=== PATIENT | female | born 1995 | race Caucasian/White ===

== ENCOUNTER 2016-12-12 07:06 | Inpatient (IN) | payer OTHER, MEDICAID ==
[2016-12-12] MEDS ORDERED: Misoprostol 50 MCG (1/2 of 100 MCG) Tab VAG ONE (08:11)
[2016-12-12] MEDS ORDERED: Ondansetron 4 MG Tab.DIS PO PRN (08:21)
[2016-12-12] MEDS ORDERED: Sodium Chloride 0.9% 10 ML Syringe FLUSH PRN (08:21)
[2016-12-12] MEDS ORDERED: fentaNYL 100 MCG/2 ML SDV IVPUSH PRN (08:21)
[2016-12-12] MEDS ORDERED: Acetaminophen 325 MG Tab PO PRN (08:21)
[2016-12-12] MEDS ORDERED: Penicillin G Potassium 5 MILLUNITS in Sodium Chloride 0.9% 50 ML IV ONE (08:25)
--- NOTE | 2016-12-12 08:33 | PCM.LDHP ---
L&D History of Present Illness - General Date of Service: 12/12/16 (induction) Admit Problem/Dx: Patient Status Order with Admit Dx/Problem 12/12/16 07:25 Patient Status [ADT] Routine 12/12/16 08:21 Patient Status [ADT] Routine Admission Diagnosis/Problem Admission Diagnosis/Problem Source of Information: Patient History Limitations: Reports: No Limitations - History of Present Illness Introduction:: This 20 year old presents today for planned induction at 41 weeks. She has had adequate care. She also has a narrow pelvis. reactive NST this morning with baseline FHTs 130 with moderate variability, cat 1 strip. CE: / Labs: GBS pos ABO A neg, had Rhogam Rubella immune HIV neg - Related Data Allergies/Adverse Reactions: Allergies Allergy/AdvReac Type Severity Reaction Status Date / Time No Known Allergies Allergy Verified 11/07/16 02:34 Home Medications: Home Meds Pnv22/Iron Cbn&Gluc/Fa/Dss/Dha [PNV OB + DHA] 1 tab PO DAILY 11/07/16 [History] Triamcinolone Acetonide [IJD: Triamcinolone Acetonide 0.1% Crm] 1 applicful TOP TID 11/07/16 [History] Past Medical History - Past Health History Medical/Surgical History: Denies Medical/Surgical History [employer] History: Reports: : 1 Para: 0 LMP (Approximate): (NERISSA 12/03/16) Social & Family History - Family History Family Medical History: Noncontributory H&P Review of Systems - Review of Systems: Review Of Systems: See Below General: Reports: No Symptoms HEENT: Reports: No Symptoms Pulmonary: Reports: No Symptoms Cardiovascular: Reports: No Symptoms Gastrointestinal: Reports: No Symptoms Genitourinary: Reports: No Symptoms Musculoskeletal: Reports: No Symptoms Skin: Reports: No Symptoms Psychiatric: Reports: No Symptoms Neurological: Reports: No Symptoms Hematologic/Lymphatic: Reports: No Symptoms Immunologic: Reports: No Symptoms L&D Exam - Exam Exam: See Below - Vital Signs Weight: 206 lb - OB Specific Fundal Height In cm: 39 Contraction Intensity: Mild Movement: Active Heart Tones: Present Heart Tones per Min: 130 Heart Rate (FHR) Variability: Moderate (6-25 bmp) Presentation: Vertex Estimated Weight: 8 pounds - Zelaya Score Zelaya Score Cervix Position: Posterior Zelaya Score Consistency: Soft Zelaya Score Effacement: 51-70% Zelaya Score Dilation: 1-2 cm Zelaya Score 's Station: -1 ,0 Zelaya Score Total: 7 - Exam General: Alert, Oriented HEENT: PERRLA, Conjunctiva Clear, Hearing Intact, Mucosa Moist & [place] Neck: Supple Lungs: Clear to Auscultation Cardiovascular: Regular Rate, Regular Rhythm Abdomen: Soft, Pelvis Stable Rectal Exam: Normal Exam Genitourinary: Normal external exam, Cervical dilitation, Enlarged uterus Back Exam: Normal Inspection, Full Range of Motion Extremities: Normal Inspection Skin: Warm, Dry, Intact Neurological: Cranial Nerves Intact, Reflexes Equal Bilateral Psychiatric: Alert, Normal Affect, Normal Mood - Patient Data Lab Results last 24 hrs: Laboratory Results - last 24 hr 12/12/16 12/12/16 12/12/16 Range/Units 07:43 07:43 07:48 WBC 11.1 H (4.5-11.0) K/uL RBC 4.27 (3.30-5.50) M/uL Hgb 12.4 (12.0-15.0) g/dL Hct 38.5 (36.0-48.0) % MCV 90 (80-98) fL MCH 29 (27-31) pg MCHC 32 (32-36) % Plt Count 202 (150-400) K/uL Urine Color Yellow Urine Appearance Turbid Urine pH 6.0 (4.5-8.0) Ur Specific [place] 1.010 (1.008-1.030) Urine Protein Negative (NEGATIVE) mg/dL Urine Glucose (UA) Normal (NEGATIVE) mg/dL Urine Ketones Negative (NEGATIVE) mg/dL Urine Occult Blood Trace (NEGATIVE) Urine Nitrite Negative (NEGATIVE) Urine Bilirubin Negative (NEGATIVE) Urine Urobilinogen Normal (NORMAL) mg/dL Ur Leukocyte Esterase Negative (NEGATIVE) Urine RBC 0-5 (0-5) Urine WBC 0-5 (0-5) Ur Epithelial Cells Many Amorphous Sediment Not seen Urine Bacteria Many Urine Mucus Few Urine Opiates Screen Negative (NEGATIVE) Ur Oxycodone Screen Negative (NEGATIVE) Urine Methadone Screen Negative (NEGATIVE) Ur Propoxyphene Screen Negative (NEGATIVE) Ur Barbiturates Screen Negative (NEGATIVE) Ur Tricyclics Screen Negative (NEGATIVE) Ur Phencyclidine Scrn Negative (NEGATIVE) Ur Amphetamine Screen Negative (NEGATIVE) U Methamphetamines Scrn Negative (NEGATIVE) Urine MDMA Screen Negative (NEGATIVE) U Benzodiazepines Scrn Negative (NEGATIVE) U Cocaine Metab Screen Negative (NEGATIVE) U Marijuana (THC) Screen Negative (NEGATIVE) Result Diagrams: 12/12/16 07:48 - Problem List (1) SNOMED Code(s): 02564967 ICD Code: Z33.1 - STATE, INCIDENTAL Status: Acute Current Visit : Yes Qualifiers: Weeks of gestation: 41 weeks Qualified Code(s): Z3A.41 - 41 weeks gestation of (2) Elective induction of labor planned SNOMED Code(s): 048164799 ICD Code: [id number] - Status: Acute Current Visit: Yes Problem List Initiated/Reviewed/Updated: Yes Orders Last 24hrs: Active Orders 24 hr Category Date Time Status Patient Status [ADT] Routine ADT 12/12/16 08:21 Ordered Antiembolic Devices [RC] .Routine Care 12/12/16 08:24 Ordered Communication Order [RC] ASDIRECTED Care 12/12/16 08:21 Ordered Heart Tones [RC] PER UNIT ROUTINE Care 12/12/16 08:21 Ordered May Shower [RC] ASDIRECTED Care 12/12/16 08:21 Ordered Notify Provider Vital Signs [RC] PRN Care 12/12/16 08:21 Ordered Notify Provider [RC] PRN Care 12/12/16 08:21 Ordered Up ad Magy [RC] ASDIRECTED Care 12/12/16 08:21 Ordered VTE/DVT Education [RC] Click to Edit Care 12/12/16 08:24 Ordered Vital Signs [RC] PER UNIT ROUTINE Care 12/12/16 08:21 Ordered Regular Diet [DIET] Diet 12/12/16 Lunch Ordered Acetaminophen [Tylenol] Med 12/12/16 08:21 Ordered 650 mg PO Q4H PRN Ondansetron [Zofran ODT] Med 12/12/16 08:21 Ordered 4 mg PO Q4H PRN Oxytocin/Normal Saline [Pitocin in NS 20 Units/1,000 ML Med 12/12/16 08:30 Ordered ] 1,000 ml IV TITRATE Penicillin G Potassium [Pfizerpen] 2.5 millunits Med 12/12/16 08:30 Ordered Sodium Chloride 0.9% [Normal Saline] 50 ml IV Q4H Penicillin G Potassium [Pfizerpen] 5 millunits Med 12/12/16 08:25 Ordered Sodium Chloride 0.9% [Normal Saline] 50 ml IV ONETIME Sodium Chloride 0.9% [Saline Flush] Med 12/12/16 08:21 Ordered 10 ml FLUSH ASDIRECTED PRN fentaNYL [Sublimaze] Med 12/12/16 08:21 Ordered 100 mcg IVPUSH Q1H PRN DVT/VTE Prophylaxis Reflex [OM.PC] Routine Oth 12/12/16 08:21 Ordered Saline Lock Insert [OM.PC] Routine Oth 12/12/16 08:21 Ordered Resuscitation Status Routine Resus Stat 12/12/16 08:21 Ordered Medication Orders Acetaminophen (Tylenol) 650 mg PO Q4H PRN PRN Reason: Pain (Mild 1-3) and fever Fentanyl (Sublimaze) 100 mcg IVPUSH Q1H PRN PRN Reason: Pain (moderate 4-6) Ondansetron HCl (Zofran Odt) 4 mg PO Q4H PRN PRN Reason: Nausea/Vomiting Sodium Chloride (Saline Flush) 10 ml FLUSH ASDIRECTED PRN PRN Reason: Keep Vein Open Assessment/Plan Comment:: This 20 G1 presents for induction at 41 weeks. GBS positive, treating ABo A neg had THogam at 29 weeks irregualr contractions on monitor this morning with a reactive nst. CE1-75-0 posterior Zelaya score 7 Plan for Misoprotol 50 MCG this morning vaginally and may repeat at noon. planning for vaginal delivery pain management per patient request.
[2016-12-12] MEDS: Penicillin G Potassium 2.5 MILLUNITS in Sodium Chloride 0.9% 50 ML IV SCH ×3 (13:15→21:44)
[2016-12-12] MEDS ORDERED: Lactated Ringers 1,000 ML IV ONE ×2 (17:46)
[2016-12-12] MEDS ORDERED: ePHEDrine 50 MG/ML SDV IVPUSH ONE (17:46)
--- NOTE | 2016-12-12 17:54 | PCM.PNLD ---
Labor Progress Note - VS & Meds Vital Signs: Last Vital Signs Temp 98.5 F 12/12/16 11:30 Pulse 89 12/12/16 11:30 Resp 18 12/12/16 11:30 BP 127/83 12/12/16 11:30 Pulse Ox 96 12/12/16 11:30 Active Medications: Current Medications Acetaminophen (Tylenol) 650 mg PO Q4H PRN PRN Reason: Pain (Mild 1-3) and fever Ephedrine Sulfate (Ephedrine Sulfate) 5 mg IVPUSH ONETIME ONE Stop: 12/12/16 17:47 Fentanyl (Sublimaze) 100 mcg IVPUSH Q1H PRN PRN Reason: Pain (moderate 4-6) Oxytocin/Sodium Chloride (Pitocin In Ns 20 Units/1,000 Ml) 20 unit in 1,000 mls @ 6 mls/hr IV TITRATE SIL; 2 MUNITS/MIN PRN Reason: Protocol Penicillin G Potassium 2.5 (millunits/ Sodium Chloride) 50 mls @ 100 mls/hr IV Q4H SIL Last Admin: 12/12/16 17:16 Dose: 100 mls/hr Lactated Ringer's (Ringers, Lactated) 1,000 mls @ 999 mls/hr IV .BOLUS ONE Stop: 12/12/16 18:46 Lactated Ringer's (Ringers, Lactated) 1,000 mls @ 999 mls/hr IV .BOLUS ONE Stop: 12/12/16 18:46 Ondansetron HCl (Zofran Odt) 4 mg PO Q4H PRN PRN Reason: Nausea/Vomiting Sodium Chloride (Saline Flush) 10 ml FLUSH ASDIRECTED PRN PRN Reason: Keep Vein Open Discontinued Medications Penicillin G Potassium 5 (millunits/ Sodium Chloride) 50 mls @ 100 mls/hr IV ONETIME ONE Stop: 12/12/16 08:54 Last Admin: 12/12/16 09:11 Dose: 100 mls/hr Misoprostol (Cytotec) 50 mcg VAG ONETIME ONE Stop: 12/12/16 08:12 Last Admin: 12/12/16 08:18 Dose: 50 mcg - Uterine Contractions Uterine Monitoring Mode: External [place] Contraction Intensity: Strong Uterine Resting Tone: Soft - Monitoring Monitor Mode: External Ultrasound Heart Rate (FHR) Baseline: 140 Heart Rate (FHR) Variability: Moderate (6-25 bmp) Accelerations: Present, 15x15 Decelerations: None Strip Review: Category I - Vaginal Exam Dilation (cm): 4 Effacement (Percent): 75 Station: 1 Cervical Position: Midposition Sterile Vaginal Exam Performed By: Debra Herndon Vaginal Exam Comment: Nice progress since this morning - Labor Progress (Free Text) Labor Progress: Needs pain management, discussion on epidural and she agreed. SROM at 1345. judith well. planning for vaginal delivery
[2016-12-12] MEDS ORDERED: Ropivacaine 200 MG in Premix Bag 1 BAG EPIDUR SCH (18:00)
[2016-12-12] MEDS ORDERED: Ropivacaine 100 ML ONE (18:10)
[2016-12-12] MEDS ORDERED: Naloxone 0.4 MG/ML SDV IVPUSH PRN (18:50)
[2016-12-12] MEDS ORDERED: ePHEDrine 50 MG/ML SDV IVPUSH PRN (18:50)
--- NOTE | 2016-12-12 20:06 | PCM.PNLD ---
Labor Progress Note - VS & Meds Vital Signs: Last Vital Signs Temp 98.5 F 12/12/16 11:30 Pulse 91 12/12/16 18:30 Resp 18 12/12/16 18:30 BP 144/85 H 12/12/16 18:30 Pulse Ox 96 12/12/16 18:20 Active Medications: Current Medications Acetaminophen (Tylenol) 650 mg PO Q4H PRN PRN Reason: Pain (Mild 1-3) and fever Ephedrine Sulfate (Ephedrine Sulfate) 5 - 10 mg IVPUSH ASDIRECTED PRN PRN Reason: IF SYSTOLIC BP LESS THAN 100 Fentanyl (Sublimaze) 100 mcg IVPUSH Q1H PRN PRN Reason: Pain (moderate 4-6) Oxytocin/Sodium Chloride (Pitocin In Ns 20 Units/1,000 Ml) 20 unit in 1,000 mls @ 6 mls/hr IV TITRATE SIL; 2 MUNITS/MIN PRN Reason: Protocol Penicillin G Potassium 2.5 (millunits/ Sodium Chloride) 50 mls @ 100 mls/hr IV Q4H SIL Last Admin: 12/12/16 17:16 Dose: 100 mls/hr Naloxone HCl (Narcan) 0.1 mg IVPUSH Q5M PRN PRN Reason: IF RESP RATE LESS THAN 6 Ondansetron HCl (Zofran Odt) 4 mg PO Q4H PRN PRN Reason: Nausea/Vomiting Last Admin: 12/12/16 19:08 Dose: 4 mg Sodium Chloride (Saline Flush) 10 ml FLUSH ASDIRECTED PRN PRN Reason: Keep Vein Open Discontinued Medications Ephedrine Sulfate (Ephedrine Sulfate) 5 mg IVPUSH ONETIME ONE Stop: 12/12/16 17:47 Penicillin G Potassium 5 (millunits/ Sodium Chloride) 50 mls @ 100 mls/hr IV ONETIME ONE Stop: 12/12/16 08:54 Last Admin: 12/12/16 09:11 Dose: 100 mls/hr Lactated Ringer's (Ringers, Lactated) 1,000 mls @ 999 mls/hr IV .BOLUS ONE Stop: 12/12/16 18:46 Last Admin: 12/12/16 18:11 Dose: 999 mls/hr Lactated Ringer's (Ringers, Lactated) 1,000 mls @ 999 mls/hr IV .BOLUS ONE Stop: 12/12/16 18:46 Last Admin: 12/12/16 19:09 Dose: Not Given Ropivacaine (Naropin 0.2%) Confirm Administered Dose 100 mls @ as directed .ROUTE .STK-MED ONE Stop: 12/12/16 18:11 Misoprostol (Cytotec) 50 mcg VAG ONETIME ONE Stop: 12/12/16 08:12 Last Admin: 12/12/16 08:18 Dose: 50 mcg - Uterine Contractions Uterine Monitoring Mode: External [place] Contraction Intensity: Strong Uterine Resting Tone: Soft - Monitoring Monitor Mode: External Ultrasound Heart Rate (FHR) Baseline: 140 Heart Rate (FHR) Variability: Moderate (6-25 bmp) Accelerations: Present, 15x15 Decelerations: None Strip Review: Category I - Vaginal Exam Dilation (cm): 4 Effacement (Percent): 75 Station: 1 Cervical Position: Midposition Sterile Vaginal Exam Performed By: Debra Herndon Vaginal Exam Comment: there is a round cyst like structure on her right side of vaginal wall close to cervix. no cervical change since last exam. - Labor Progress (Free Text) Labor Progress: transvaginal ultrasound to assess cyst like structure. Epidural in place, may augment with pitocin for labor management
--- NOTE | 2016-12-12 20:55 | PCM.PNLD ---
Labor Progress Note - VS & Meds Vital Signs: Last Vital Signs Temp 98.6 F 12/12/16 18:45 Pulse 83 12/12/16 19:30 Resp 16 12/12/16 19:30 BP 112/59 L 12/12/16 19:30 Pulse Ox 96 12/12/16 19:30 Active Medications: Current Medications Acetaminophen (Tylenol) 650 mg PO Q4H PRN PRN Reason: Pain (Mild 1-3) and fever Ephedrine Sulfate (Ephedrine Sulfate) 5 - 10 mg IVPUSH ASDIRECTED PRN PRN Reason: IF SYSTOLIC BP LESS THAN 100 Fentanyl (Sublimaze) 100 mcg IVPUSH Q1H PRN PRN Reason: Pain (moderate 4-6) Oxytocin/Sodium Chloride (Pitocin In Ns 20 Units/1,000 Ml) 20 unit in 1,000 mls @ 6 mls/hr IV TITRATE SIL; 2 MUNITS/MIN PRN Reason: Protocol Penicillin G Potassium 2.5 (millunits/ Sodium Chloride) 50 mls @ 100 mls/hr IV Q4H SIL Last Admin: 12/12/16 17:16 Dose: 100 mls/hr Naloxone HCl (Narcan) 0.1 mg IVPUSH Q5M PRN PRN Reason: IF RESP RATE LESS THAN 6 Ondansetron HCl (Zofran Odt) 4 mg PO Q4H PRN PRN Reason: Nausea/Vomiting Last Admin: 12/12/16 19:08 Dose: 4 mg Sodium Chloride (Saline Flush) 10 ml FLUSH ASDIRECTED PRN PRN Reason: Keep Vein Open Discontinued Medications Ephedrine Sulfate (Ephedrine Sulfate) 5 mg IVPUSH ONETIME ONE Stop: 12/12/16 17:47 Penicillin G Potassium 5 (millunits/ Sodium Chloride) 50 mls @ 100 mls/hr IV ONETIME ONE Stop: 12/12/16 08:54 Last Admin: 12/12/16 09:11 Dose: 100 mls/hr Lactated Ringer's (Ringers, Lactated) 1,000 mls @ 999 mls/hr IV .BOLUS ONE Stop: 12/12/16 18:46 Last Admin: 12/12/16 18:11 Dose: 999 mls/hr Lactated Ringer's (Ringers, Lactated) 1,000 mls @ 999 mls/hr IV .BOLUS ONE Stop: 12/12/16 18:46 Last Admin: 12/12/16 19:09 Dose: Not Given Ropivacaine (Naropin 0.2%) Confirm Administered Dose 100 mls @ as directed .ROUTE .STK-MED ONE Stop: 12/12/16 18:11 Misoprostol (Cytotec) 50 mcg VAG ONETIME ONE Stop: 12/12/16 08:12 Last Admin: 12/12/16 08:18 Dose: 50 mcg - Uterine Contractions Uterine Monitoring Mode: External [place] Contraction Frequency (min): 1-4.5 Contraction Duration (sec): 30-70 Contraction Intensity: Strong Uterine Resting Tone: Soft - Monitoring Monitor Mode: External Ultrasound Heart Rate (FHR) Baseline: 140 Heart Rate (FHR) Variability: Moderate (6-25 bmp) Accelerations: Present, 15x15 Decelerations: None Strip Review: Category I - Vaginal Exam Dilation (cm): 4 Effacement (Percent): 75 Station: 1 Cervical Position: Midposition Sterile Vaginal Exam Performed By: Debra Herndon Vaginal Exam Comment: there is a round cyst like structure on her right side of vaginal wall close to cervix. no cervical change since last exam. - Labor Progress (Free Text) Labor Progress: So the round structure was the [place] balloon. removed to confirm and replaced.
[2016-12-12] MEDS ORDERED: Bupivacaine 0.25% 10 ML SDV ONE (23:45)
[2016-12-13] MEDS ORDERED: Ropivacaine 100 ML ONE (00:31)
[2016-12-13] MEDS: Penicillin G Potassium 2.5 MILLUNITS in Sodium Chloride 0.9% 50 ML IV SCH ×2 (01:21→08:59)
--- NOTE | 2016-12-13 01:58 | ANES ---
DATE OF SERVICE: 12/12/2016 TIME: 1815 hours. INDICATION: I was called to the Labor and delivery unit to evaluate Ms. Oviedo for a labor epidural. This is her 1st baby, approximately 4 cm and she has 41 weeks. Risk and benefits of the proceed were explained to the patient. She wished to proceed with labor epidural. NARRATIVE: She was placed in a sitting position. Her back was prepped x3 with Betadine, 1% lidocaine skin local was used. The epidural was placed at L3-L4 using a 17-gauge Tuohy needle in loss of resistance technique. Epidural had very good feel throughout, the epidural space was easily identified. There was negative CSF, negative blood, and negative paresthesias noted. Therefore, catheter was threaded to 12 cm at the skin. There was negative CSF, negative blood, and negative paresthesias noted in the catheter as well. A 3 mL test dose of 1.5% lidocaine with epinephrine was given and this test dose was negative. The catheter was then secured with Tegaderm and tape. She was laid in the supine position. A 10 mL bolus of 0.2% ropivacaine was given. Her vital signs remained stable during this. She got good relief from the bolus, therefore a 0.2% ropivacaine drip was started at 12 mL/h. We will continue to monitor screws throughout her labor and delivery stay. She tolerated the procedure very nicely. Her vital signs remained stable throughout the procedure and no anesthesia complications were noted. Yossi Friedman CRNA /[id number]
--- NOTE | 2016-12-13 03:32 | PCM.PNLD ---
Labor Progress Note - VS & Meds Vital Signs: Last Vital Signs Temp 100.0 F 12/13/16 03:30 Pulse 112 H 12/13/16 03:28 Resp 18 12/13/16 03:00 BP 123/72 12/13/16 03:28 Pulse Ox 95 12/13/16 03:00 Active Medications: Current Medications Acetaminophen (Tylenol) 650 mg PO Q4H PRN PRN Reason: Pain (Mild 1-3) and fever Ephedrine Sulfate (Ephedrine Sulfate) 5 - 10 mg IVPUSH ASDIRECTED PRN PRN Reason: IF SYSTOLIC BP LESS THAN 100 Fentanyl (Sublimaze) 100 mcg IVPUSH Q1H PRN PRN Reason: Pain (moderate 4-6) Oxytocin/Sodium Chloride (Pitocin In Ns 20 Units/1,000 Ml) 20 unit in 1,000 mls @ 6 mls/hr IV TITRATE SIL; 2 MUNITS/MIN PRN Reason: Protocol Last Titration: 12/13/16 01:15 Dose: 10 munits/min, 30 mls/hr Penicillin G Potassium 2.5 (millunits/ Sodium Chloride) 50 mls @ 100 mls/hr IV Q4H SIL Last Admin: 12/13/16 01:21 Dose: 100 mls/hr Ropivacaine 200 mg/ Premix 100 mls @ 12 mls/hr EPIDUR ASDIRECTED SIL Naloxone HCl (Narcan) 0.1 mg IVPUSH Q5M PRN PRN Reason: IF RESP RATE LESS THAN 6 Ondansetron HCl (Zofran Odt) 4 mg PO Q4H PRN PRN Reason: Nausea/Vomiting Last Admin: 12/12/16 19:08 Dose: 4 mg Sodium Chloride (Saline Flush) 10 ml FLUSH ASDIRECTED PRN PRN Reason: Keep Vein Open Discontinued Medications Bupivacaine HCl (Sensorcaine-Mpf 0.25%) Confirm Administered Dose 10 ml .ROUTE .STK-MED ONE Stop: 12/12/16 23:46 Ephedrine Sulfate (Ephedrine Sulfate) 5 mg IVPUSH ONETIME ONE Stop: 12/12/16 17:47 Last Admin: 12/13/16 00:40 Dose: Not Given Penicillin G Potassium 5 (millunits/ Sodium Chloride) 50 mls @ 100 mls/hr IV ONETIME ONE Stop: 12/12/16 08:54 Last Admin: 12/12/16 09:11 Dose: 100 mls/hr Lactated Ringer's (Ringers, Lactated) 1,000 mls @ 999 mls/hr IV .BOLUS ONE Stop: 12/12/16 18:46 Last Admin: 12/12/16 18:11 Dose: 999 mls/hr Lactated Ringer's (Ringers, Lactated) 1,000 mls @ 999 mls/hr IV .BOLUS ONE Stop: 12/12/16 18:46 Last Admin: 12/12/16 19:09 Dose: Not Given Ropivacaine (Naropin 0.2%) Confirm Administered Dose 100 mls @ as directed .ROUTE .STK-MED ONE Stop: 12/12/16 18:11 Ropivacaine (Naropin 0.2%) Confirm Administered Dose 100 mls @ as directed .ROUTE .STK-MED ONE Stop: 12/13/16 00:32 Last Admin: 12/13/16 00:41 Dose: 15 mg Misoprostol (Cytotec) 50 mcg VAG ONETIME ONE Stop: 12/12/16 08:12 Last Admin: 12/12/16 08:18 Dose: 50 mcg - Uterine Contractions Uterine Monitoring Mode: External [place] Contraction Frequency (min): 2-3.5 Contraction Duration (sec): 70-80 Contraction Intensity: Strong Uterine Resting Tone: Soft - Monitoring Monitor Mode: External Ultrasound Heart Rate (FHR) Baseline: 140 Heart Rate (FHR) Variability: Moderate (6-25 bmp) Accelerations: Present, 15x15 Decelerations: None Strip Review: Category I - Vaginal Exam Dilation (cm): 10 Effacement (Percent): 100 Station: 1 Cervical Position: Anterior Sterile Vaginal Exam Performed By: Myra Jean Vaginal Exam Comment: complete and laboring down - Labor Progress (Free Text) Labor Progress: Ready to push Will give her two hours of pushing
--- NOTE | 2016-12-13 04:16 | ANES ---
DATE OF SERVICE: 12/12/2016 TIME: 2350 hours. INDICATION: I was called to the Labor and Delivery unit to evaluate Ms. Oviedo for a re- bolus of her epidural. They recently started her on Pitocin and had an extremely difficult time inserting a Connell catheter and through that process, she was having a little bit of discomfort. NARRATIVE: Upon arrival, she did notice to be wincing a fair amount through her contractions. I did go ahead and bolus her with 10 mL of 0.25% bupivacaine. I then turned her 0.2% ropivacaine drip up to 15 mL/h. She got good relief from this bolus and the increase in the drip and we will continue to monitor her throughout her Labor and Delivery stay. Yossi Friedman CRNA /[id number]
--- NOTE | 2016-12-13 05:10 | PCM.PNLD ---
Labor Progress Note - VS & Meds Vital Signs: Last Vital Signs Temp 100.0 F 12/13/16 03:30 Pulse 112 H 12/13/16 03:28 Resp 18 12/13/16 03:00 BP 123/72 12/13/16 03:28 Pulse Ox 95 12/13/16 03:00 Active Medications: Current Medications Acetaminophen (Tylenol) 650 mg PO Q4H PRN PRN Reason: Pain (Mild 1-3) and fever Ephedrine Sulfate (Ephedrine Sulfate) 5 - 10 mg IVPUSH ASDIRECTED PRN PRN Reason: IF SYSTOLIC BP LESS THAN 100 Fentanyl (Sublimaze) 100 mcg IVPUSH Q1H PRN PRN Reason: Pain (moderate 4-6) Oxytocin/Sodium Chloride (Pitocin In Ns 20 Units/1,000 Ml) 20 unit in 1,000 mls @ 6 mls/hr IV TITRATE SIL; 2 MUNITS/MIN PRN Reason: Protocol Last Titration: 12/13/16 01:15 Dose: 10 munits/min, 30 mls/hr Penicillin G Potassium 2.5 (millunits/ Sodium Chloride) 50 mls @ 100 mls/hr IV Q4H SIL Last Admin: 12/13/16 01:21 Dose: 100 mls/hr Ropivacaine 200 mg/ Premix 100 mls @ 12 mls/hr EPIDUR ASDIRECTED SIL Naloxone HCl (Narcan) 0.1 mg IVPUSH Q5M PRN PRN Reason: IF RESP RATE LESS THAN 6 Ondansetron HCl (Zofran Odt) 4 mg PO Q4H PRN PRN Reason: Nausea/Vomiting Last Admin: 12/12/16 19:08 Dose: 4 mg Sodium Chloride (Saline Flush) 10 ml FLUSH ASDIRECTED PRN PRN Reason: Keep Vein Open Discontinued Medications Bupivacaine HCl (Sensorcaine-Mpf 0.25%) Confirm Administered Dose 10 ml .ROUTE .STK-MED ONE Stop: 12/12/16 23:46 Ephedrine Sulfate (Ephedrine Sulfate) 5 mg IVPUSH ONETIME ONE Stop: 12/12/16 17:47 Last Admin: 12/13/16 00:40 Dose: Not Given Penicillin G Potassium 5 (millunits/ Sodium Chloride) 50 mls @ 100 mls/hr IV ONETIME ONE Stop: 12/12/16 08:54 Last Admin: 12/12/16 09:11 Dose: 100 mls/hr Lactated Ringer's (Ringers, Lactated) 1,000 mls @ 999 mls/hr IV .BOLUS ONE Stop: 12/12/16 18:46 Last Admin: 12/12/16 18:11 Dose: 999 mls/hr Lactated Ringer's (Ringers, Lactated) 1,000 mls @ 999 mls/hr IV .BOLUS ONE Stop: 12/12/16 18:46 Last Admin: 12/12/16 19:09 Dose: Not Given Ropivacaine (Naropin 0.2%) Confirm Administered Dose 100 mls @ as directed .ROUTE .STK-MED ONE Stop: 12/12/16 18:11 Ropivacaine (Naropin 0.2%) Confirm Administered Dose 100 mls @ as directed .ROUTE .STK-MED ONE Stop: 12/13/16 00:32 Last Admin: 12/13/16 00:41 Dose: 15 mg Misoprostol (Cytotec) 50 mcg VAG ONETIME ONE Stop: 12/12/16 08:12 Last Admin: 12/12/16 08:18 Dose: 50 mcg - Uterine Contractions Uterine Monitoring Mode: External [place] Contraction Frequency (min): 2-3.5 Contraction Duration (sec): 70-80 Contraction Intensity: Strong Uterine Resting Tone: Soft - Monitoring Monitor Mode: External Ultrasound Heart Rate (FHR) Baseline: 140 Heart Rate (FHR) Variability: Moderate (6-25 bmp) Accelerations: Present, 15x15 Decelerations: None Strip Review: Category I - Vaginal Exam Dilation (cm): 10 Effacement (Percent): 100 Station: 1 Cervical Position: Anterior Sterile Vaginal Exam Performed By: Myra Jean Vaginal Exam Comment: complete and laboring down - Labor Progress (Free Text) Labor Progress: pushing over an hour without progress, has an epidural. Severe anxiety affecting her ability to push and cooperate. Discuss c section as option for delivery. Crew and surgeon contacted. DX: CPD with severe anxiety
[2016-12-13] MEDS ORDERED: cefOXitin 1 GM Vial ONE (05:15)
[2016-12-13] MEDS ORDERED: Oxytocin 10 Units/1 ML SDV ONE ×2 (05:15→05:50)
[2016-12-13] MEDS ORDERED: ceFAZolin 2 GM in Premix Bag 1 BAG IV ONE (05:20)
[2016-12-13] MEDS ORDERED: ceFAZolin 1 GM Vial ONE (05:22)
[2016-12-13] MEDS ORDERED: Sodium Chloride 0.9% 100 ML ONE (05:23)
[2016-12-13] MEDS ORDERED: Lactated Ringers 2,000 ML ONE (05:50)
[2016-12-13] MEDS ORDERED: Bupivacaine 0.5% 30 ML SDV ONE (05:50)
[2016-12-13] MEDS ORDERED: Morphine PF 10 MG/10 ML SDV ONE ×2 (06:07→18:54)
[2016-12-13] MEDS ORDERED: Ondansetron 4 MG/2 ML SDV ONE (06:15)
[2016-12-13] MEDS ORDERED: Dexamethasone 4 MG/ML SDV ONE (06:15)
[2016-12-13] MEDS ORDERED: Sodium Chloride 0.9% 10 ML ONE ×2 (06:33→18:54)
[2016-12-13] MEDS ORDERED: Morphine PF 10 MG/10 ML SDV EPIDUR PRN (07:00)
[2016-12-13] MEDS ORDERED: Naloxone 0.4 MG/ML SDV IV PRN (07:30)
[2016-12-13] MEDS ORDERED: HYDROmorphone/Normal Saline 15 MG/30 ML PCA IV PRN (07:30)
[2016-12-13] MEDS ORDERED: diphenhydrAMINE 50 MG/ML SDV IVPUSH PRN (07:49)
[2016-12-13] MEDS ORDERED: Naloxone 0.4 MG/ML SDV IVPUSH PRN (07:49)
[2016-12-13] MEDS ORDERED: Meperidine PF 75 MG/ML Syringe IVPUSH PRN (07:59)
[2016-12-13] MEDS ORDERED: Ondansetron 4 MG Tab.DIS PO PRN (08:02)
[2016-12-13] MEDS ORDERED: Ondansetron 4 MG/2 ML SDV IVPUSH PRN (08:08)
--- NOTE | 2016-12-13 10:51 | US ---
Transvaginal Non OB HISTORY: Palpable lump in the cervix region patient is in labor. COMPARISON: 07/17/2016 OB ultrasound FINDINGS: Fetus is in the cephalic position. Anechoic area with some internal echogenicity presumabl y representing catheter for Connell. This was confirmed as the Connell was removed and this anechoic reg ion was no longer seen. No abnormal mass lesion is seen.
--- NOTE | 2016-12-13 11:04 | OR ---
DATE OF PROCEDURE: 12/13/2016 PREOPERATIVE DIAGNOSES: 1. Post date . 2. Active labor. 3. Cephalopelvic disproportion. 4. Failure to progress. POSTOPERATIVE DIAGNOSES: 1. Post date . 2. Active labor. 3. Cephalopelvic disproportion. 4. Ffailure to progress. PROCEDURE: section. NUTRITION REPRESENTATIVE: Heide Herndon CNM. Per A[employer]G standards of care guidelines, this procedure requires a tutoring assistant. ANESTHESIA: Epidural. INDICATION: This 21-year-old, white female is with her first child. Her EDC was December 05, 2016. She is in an active labor and suffered failure to progress. A request was made for a section. I counseled her for this and she gave her informed consent to proceed. DESCRIPTION OF PROCEDURE: After adequate epidural anesthesia was obtained, an attempt was made to place a Connell. This was unsuccessful. A wedge was placed under her right flank. Her abdomen was prepped and draped in the usual sterile fashion. Time-out was held. A Pfannenstiel incision was made. This was carried deep using Bovie cautery to the fascia. The fascia was incised transversely. Upper and lower subfascial flaps were developed from the umbilicus to the pubis. The muscles in the midline were . The peritoneum was elevated and incised. The peritoneal incision was extended superiorly and inferiorly the lengths of flaps using Bovie cautery while protecting underlying structures. The bladder flap was dissected free from the lower uterine segment. A transverse lower uterine segment incision was then made releasing normal-appearing amniotic fluid. The child's head was engaged in the pelvis. We had to reduce this back up and then deliver the child's head. Heide Herndon aspirated its nose and mouth free. The child's body was then delivered. This was found to be a baby boy, ultimately shown to have score of 8 and 9. The cord was doubly clamped and divided and Heide Herndon attended to the child. Cord blood was collected. The uterus was delivered up onto the anterior abdominal wall. The placenta was delivered. It appeared to have a 3-vessel cord. Residual membranes were removed. Pitocin 10 units was directly injected into the uterine body and a Pitocin drip was started by the Anesthesia Service. The transverse lower uterine segment incision was then closed with a running locking stitch of #1 Vicryl. A second running locking stitch of #1 Vicryl was placed over the first to further bolster the closure. The retrouterine space was irrigated and suctioned dry. The bladder flap was re-attached up over the lower uterine segment with a running stitch of #1 Vicryl. The uterus was returned to the abdominal cavity. The muscles and peritoneum in the midline were closed with a running stitch of #2 Vicryl. The incision was irrigated and suctioned dry. The fascia was closed with a running stitch of #2 Vicryl. The incision was again irrigated and suctioned dry. Vicryl 4-0 using a subcuticular stitch was placed to approximate the skin. Dermabond was applied. The patient tolerated the procedure well and was brought from the operating room in good condition. Reji Greenfield MD /[id number] [email or web address]
[2016-12-13] MEDS: D5 1/2 NS w/ 20 mEq/L KCl 1,000 ML IV SCH ×2 (12:51→20:59)
[2016-12-14] MEDS: D5 1/2 NS w/ 20 mEq/L KCl 1,000 ML IV SCH (05:02)
[2016-12-14] MEDS: Acetaminophen/HYDROcodone 325-5 MG Tab PO PRN ×3 (12:00→21:27)
--- NOTE | 2016-12-14 13:44 | PCM.SURGPN ---
- General Info Date of Service: 12/14/16 Date of Surgery/Procedure: 12/13/16 POD#: 1 Post-Op Diagnosis: Section Admission Diagnosis/Problem: section Functional Status: Reports: pain controlled, tolerating diet, ambulating, urinating (Connell is in place), incentive spirometry - Review of Systems General: Reports: No Symptoms HEENT: Reports: no symptoms Pulmonary: Reports: no symptoms Cardiovascular: Reports: No Symptoms Gastrointestinal: Reports: No symptoms, Other (Tolerating regular diet. ) Genitourinary: Reports: no symptoms Musculoskeletal: Reports: no symptoms Skin: Reports: no symptoms Neurological: Reports: No Symptoms Psychiatric: Reports: no symptoms - Patient Data Vitals - most recent: Last Vital Signs Temp 98.2 F 12/14/16 09:00 Pulse 109 H 12/14/16 09:00 Resp 18 12/14/16 09:00 BP 97/70 12/14/16 09:00 Pulse Ox 97 12/14/16 09:00 Weight - most recent: 206 lb I&O - last 24 hours: Intake & Output 12/13/16 12/14/16 12/14/16 22:59 06:59 14:59 Intake Total 2706 60 Output Total 200 700 Balance -200 2005 60 Lab Results last 24 hrs: Laboratory Results - last 24 hr 12/13/16 12/14/16 12/14/16 Range/Units 18:00 06:04 06:04 WBC 20.4 H 15.9 H (4.5-11.0) K/uL RBC 3.47 2.98 L (3.30-5.50) M/uL Hgb 10.4 L D 9.0 L (12.0-15.0) g/dL Hct 31.4 L 27.4 L (36.0-48.0) % MCV 91 92 (80-98) fL MCH 30 30 (27-31) pg MCHC 33 33 (32-36) % Plt Count 221 173 (150-400) K/uL Sodium 137 L (140-148) mmol/L Potassium 4.2 (3.6-5.2) mmol/L Chloride 107 (100-108) mmol/L Carbon Dioxide 21 (21-32) mmol/L Anion Gap 13.2 (5.0-14.0) mmol/L BUN 9 (7-18) mg/dL Creatinine 0.7 (0.6-1.0) mg/dL Est Cr Clr Drug Dosing 114.40 mL/min Estimated GFR (MDRD) > 60 (>60) Glucose 134 H (74-106) mg/dL Calcium 8.4 L (8.5-10.1) mg/dL Med Orders - Current: Current Medications Hydrocodone Bitart/Acetaminophen ([place] 325-5 Mg) 1 - 2 tab PO Q4H PRN PRN Reason: Pain Diphenhydramine HCl (Benadryl) 50 mg IVPUSH Q6H PRN PRN Reason: ITCHING Hydromorphone HCl (Dilaudid Chief Revenue Officer 15 Mg In Ns 30 Ml) 0 mg IV ASDIRECTED PRN; Protocol PRN Reason: LINE PULLER PAIN CONTROL Naloxone HCl 0.4 mg/ Sodium (Chloride) 1,001 mls @ 0 mls/hr IV ASDIRECTED PRN; Protocol; Titrate PRN Reason: ITCHING Potassium Chloride/Dextrose/Sod Cl (D5 1/2 Ns W/ 20 Meq/L Kcl) 1,000 mls @ 125 mls/hr IV ASDIRECTED SIL Last Admin: 12/14/16 05:02 Dose: 125 mls/hr Meperidine HCl (Demerol) 75 mg IVPUSH ONETIME PRN PRN Reason: ONCE FOR BREAKTHROUGH PAIN Naloxone HCl (Narcan) 0.1 mg IV ASDIRECTED PRN PRN Reason: decreased respiratory rate Naloxone HCl (Narcan) 0.1 mg IVPUSH Q5M PRN PRN Reason: IF RESP RATE LESS THAN 6 Ondansetron HCl (Zofran) 4 mg IVPUSH Q6H PRN PRN Reason: Nausea/Vomiting Sodium Chloride (Saline Flush) 10 ml FLUSH ASDIRECTED PRN PRN Reason: Keep Vein Open Discontinued Medications Acetaminophen (Tylenol) 650 mg PO Q4H PRN PRN Reason: Pain (Mild 1-3) and fever Bupivacaine HCl (Sensorcaine-Mpf 0.25%) Confirm Administered Dose 10 ml .ROUTE .STK-MED ONE Stop: 12/12/16 23:46 Bupivacaine HCl (Marcaine 0.5%) Confirm Administered Dose 60 ml .ROUTE .STK-MED ONE Stop: 12/13/16 05:51 Cefazolin Sodium (Ancef) Confirm Administered Dose 2 gm .ROUTE .STK-MED ONE Stop: 12/13/16 05:23 Last Admin: 12/13/16 09:00 Dose: Not Given Cefoxitin Sodium (Mefoxin) Confirm Administered Dose 1 gm .ROUTE .STK-MED ONE Stop: 12/13/16 05:16 Dexamethasone (Dexamethasone) Confirm Administered Dose 4 mg .ROUTE .STK-MED ONE Stop: 12/13/16 06:16 Ephedrine Sulfate (Ephedrine Sulfate) 5 mg IVPUSH ONETIME ONE Stop: 12/12/16 17:47 Last Admin: 12/13/16 00:40 Dose: Not Given Ephedrine Sulfate (Ephedrine Sulfate) 5 - 10 mg IVPUSH ASDIRECTED PRN PRN Reason: IF SYSTOLIC BP LESS THAN 100 Fentanyl (Sublimaze) 100 mcg IVPUSH Q1H PRN PRN Reason: Pain (moderate 4-6) Oxytocin/Sodium Chloride (Pitocin In Ns 20 Units/1,000 Ml) 20 unit in 1,000 mls @ 6 mls/hr IV TITRATE SIL; 2 MUNITS/MIN PRN Reason: Protocol Last Titration: 12/13/16 01:15 Dose: 10 munits/min, 30 mls/hr Penicillin G Potassium 5 (millunits/ Sodium Chloride) 50 mls @ 100 mls/hr IV ONETIME ONE Stop: 12/12/16 08:54 Last Admin: 12/12/16 09:11 Dose: 100 mls/hr Penicillin G Potassium 2.5 (millunits/ Sodium Chloride) 50 mls @ 100 mls/hr IV Q4H SIL Last Admin: 12/13/16 08:59 Dose: Not Given Lactated Ringer's (Ringers, Lactated) 1,000 mls @ 999 mls/hr IV .BOLUS ONE Stop: 12/12/16 18:46 Last Admin: 12/12/16 18:11 Dose: 999 mls/hr Lactated Ringer's (Ringers, Lactated) 1,000 mls @ 999 mls/hr IV .BOLUS ONE Stop: 12/12/16 18:46 Last Admin: 12/12/16 19:09 Dose: Not Given Ropivacaine (Naropin 0.2%) Confirm Administered Dose 100 mls @ as directed .ROUTE .STK-MED ONE Stop: 12/12/16 18:11 Ropivacaine (Naropin 0.2%) Confirm Administered Dose 100 mls @ as directed .ROUTE .STK-MED ONE Stop: 12/13/16 00:32 Last Admin: 12/13/16 00:41 Dose: 15 mg Ropivacaine 200 mg/ Premix 100 mls @ 12 mls/hr EPIDUR ASDIRECTED SIL Cefazolin Sodium/Dextrose 2 gm (/ Premix) 50 mls @ 100 mls/hr IV ONETIME ONE Stop: 12/13/16 05:49 Last Admin: 12/13/16 09:01 Dose: Not Given Sodium Chloride (Normal Saline) Confirm Administered Dose 100 mls @ as directed .ROUTE .STK-MED ONE Stop: 12/13/16 05:24 Last Admin: 12/13/16 09:00 Dose: Not Given Lactated Ringer's (Ringers, Lactated) Confirm Administered Dose 2,000 mls @ as directed .ROUTE .STK-MED ONE Stop: 12/13/16 05:51 Sodium Chloride (Normal Saline) Confirm Administered Dose 10 mls @ as directed .ROUTE .STK-MED ONE Stop: 12/13/16 06:34 Sodium Chloride (Normal Saline) Confirm Administered Dose 10 mls @ as directed .ROUTE .STK-MED ONE Stop: 12/13/16 18:55 Misoprostol (Cytotec) 50 mcg VAG ONETIME ONE Stop: 12/12/16 08:12 Last Admin: 12/12/16 08:18 Dose: 50 mcg Morphine Sulfate (Duramorph Pf) Confirm Administered Dose 10 mg .ROUTE .STK-MED ONE Stop: 12/13/16 06:08 Morphine Sulfate (Duramorph Pf) 2 - 6 mg EPIDUR Q12H PRN PRN Reason: PAIN Morphine Sulfate (Duramorph Pf) Confirm Administered Dose 10 mg .ROUTE .STK-MED ONE Stop: 12/13/16 18:55 Naloxone HCl (Narcan) 0.1 mg IVPUSH Q5M PRN PRN Reason: IF RESP RATE LESS THAN 6 Ondansetron HCl (Zofran Odt) 4 mg PO Q4H PRN PRN Reason: Nausea/Vomiting Last Admin: 12/12/16 19:08 Dose: 4 mg Ondansetron HCl (Zofran) Confirm Administered Dose 4 mg .ROUTE .STK-MED ONE Stop: 12/13/16 06:16 Ondansetron HCl (Zofran Odt) 4 mg PO Q6H PRN PRN Reason: Nausea/Vomiting Oxytocin (Pitocin) Confirm Administered Dose 10 unit .ROUTE .STK-MED ONE Stop: 12/13/16 05:16 Last Admin: 12/13/16 06:59 Dose: 10 unit Oxytocin (Pitocin) Confirm Administered Dose 10 unit .ROUTE .[facility] ONE Stop: 12/13/16 05:51 - Exam Wound/Incisions: dressing dry and intact, no drainage Quality Assessment: urine catheter, DVT prophylaxis General: alert, oriented, cooperative, no acute distress Lungs: Clear to auscultation, Normal respiratory effort Cardiovascular: Regular Rate, Regular Rhythm Abdomen: bowel sounds present, soft, no distension Extremities: no edema Skin: warm, dry, intact Neurological: no new focal deficit Psy/Mental Status: alert, normal affect, normal mood - Problem List Review Problem List Initiated/Reviewed/Updated: Yes - My Orders Last 24 Hours: Active Orders 24 hr Category Date Time Status Regular Diet [DIET] Diet 12/13/16 Dinner Active Acetaminophen/HYDROcodone [[place] 325-5 MG] Med 12/14/16 11:05 Active 1 - 2 tab PO Q4H PRN Convert IV to Saline Lock [OM.PC] Routine Oth 12/14/16 10:57 Ordered Medication Orders Hydrocodone Bitart/Acetaminophen ([place] 325-5 Mg) 1 - 2 tab PO Q4H PRN PRN Reason: Pain Diphenhydramine HCl (Benadryl) 50 mg IVPUSH Q6H PRN PRN Reason: ITCHING Hydromorphone HCl (Dilaudid Chief Revenue Officer 15 Mg In Ns 30 Ml) 0 mg IV ASDIRECTED PRN; Protocol PRN Reason: LINE PULLER PAIN CONTROL Naloxone HCl 0.4 mg/ Sodium (Chloride) 1,001 mls @ 0 mls/hr IV ASDIRECTED PRN; Protocol; Titrate PRN Reason: ITCHING Potassium Chloride/Dextrose/Sod Cl (D5 1/2 Ns W/ 20 Meq/L Kcl) 1,000 mls @ 125 mls/hr IV ASDIRECTED SIL Last Admin: 12/14/16 05:02 Dose: 125 mls/hr Infusion: 06/02/17 04:59 Dose: 125 mls/hr Admin: 12/13/16 20:59 Dose: 125 mls/hr Infusion: 12/13/16 20:51 Dose: 125 mls/hr Admin: 12/13/16 12:51 Dose: 125 mls/hr Meperidine HCl (Demerol) 75 mg IVPUSH ONETIME PRN PRN Reason: ONCE FOR BREAKTHROUGH PAIN Naloxone HCl (Narcan) 0.1 mg IV ASDIRECTED PRN PRN Reason: decreased respiratory rate Naloxone HCl (Narcan) 0.1 mg IVPUSH Q5M PRN PRN Reason: IF RESP RATE LESS THAN 6 Ondansetron HCl (Zofran) 4 mg IVPUSH Q6H PRN PRN Reason: Nausea/Vomiting Sodium Chloride (Saline Flush) 10 ml FLUSH ASDIRECTED PRN PRN Reason: Keep Vein Open - Assessment Assessment (Free Text/Narrative):: Doing well. Hgb is 9 - Plan Plan (Free Text/Narrative):: D/C epidural and Connell. Saline lock IV. Oral pain medication.
[2016-12-15] MEDS: Acetaminophen/HYDROcodone 325-5 MG Tab PO PRN ×3 (02:03→12:54)
[2016-12-15 07:27] VITALS: BP 111/82
--- NOTE | 2016-12-15 09:42 | PCM.DCSUM1 ---
Discharge Summary - Hospital Course Free Text/Narrative:: This 21 year old white female was admitted at 41 weeks gestation in labor. She suffered failure to progress so on December 13, 2016 she underwent a section. Anesthesia was epidural. She delivered a boy with APGARs of 8 and 9. Her post operative course was unremarkable. Her epidural, Connell and IV have been removed. She is eating well. Her Hgb is 8.6. She is discharged at this time in good condition. - Discharge Data Discharge Date: 12/15/16 Discharge Disposition: Home, Self-Care 01 Condition: Good - Patient Summary/Data Operative Procedure(s) Performed: See above narrative. Hospital Course: See above narrative. - Patient Instructions Diet: Usual Diet as Tolerated Activity: No Lifting Over 10 Pounds (For six weeks from date of surgery.), No Strenuous Activities Driving, Other: Do not drive while taking narcotic pain medication. Showering/Bathing: November Shower Notify Provider of: Fever, Increased Pain, Swelling and Redness, Drainage, Nausea and/or Vomiting - Discharge Plan Prescriptions/Med Rec: Acetaminophen/HYDROcodone [[place] 325-5 MG] 1 - 2 tab PO Q4H PRN #30 tablet PRN Reason: Abdominal Pain Ferrous Sulfate 325 mg PO BID #60 tablet Home Medications: Home Meds Pnv22/Iron Cbn&Gluc/Fa/Dss/Dha [PNV OB + DHA] 1 tab PO DAILY 11/07/16 [History] Triamcinolone Acetonide [IJD: Triamcinolone Acetonide 0.1% Crm] 1 applicful TOP TID 11/07/16 [History] Acetaminophen/HYDROcodone [[place] 325-5 MG] 1 - 2 tab PO Q4H PRN #30 tablet 12/15 [Rx] Ferrous Sulfate 325 mg PO BID #60 tablet 12/15/16 [Rx] Referrals: Reji Greenfield MD [Physician] - (See me in [facility] in about two weeks.) Debra Herndon CNM [Primary Care Provider] - (See her in [facility] in about six weeks.) - Discharge Summary/Plan Comment DC Time >30 min.: Yes Discharge Summary/Plan Comment: See above narrative. - General Info Date of Service: 12/15/16 Functional Status: Reports: pain controlled, tolerating diet, ambulating, urinating, incentive spirometry - Review of Systems General: Reports: No Symptoms HEENT: Reports: no symptoms Pulmonary: Reports: no symptoms Cardiovascular: Reports: No Symptoms Gastrointestinal: Reports: No symptoms Genitourinary: Reports: no symptoms Musculoskeletal: Reports: no symptoms Skin: Reports: no symptoms Neurological: Reports: No Symptoms Psychiatric: Reports: no symptoms - Patient Data Vitals - Most Recent: Last Vital Signs Temp 98.2 F 12/15/16 07:25 Pulse 111 H 12/15/16 07:25 Resp 16 12/15/16 07:25 BP 111/82 12/15/16 07:25 Pulse Ox 100 12/15/16 07:25 Weight - Most Recent: 206 lb I&O - Last 24 hours: Intake & Output 12/14/16 12/15/16 12/15/16 22:59 06:59 14:59 Intake Total 1000 Balance 1000 Lab Results - Last 24 hrs: Laboratory Results - last 24 hr 12/15/16 Range/Units 06:02 WBC 10.7 (4.5-11.0) K/uL RBC 2.84 L (3.30-5.50) M/uL Hgb 8.6 L (12.0-15.0) g/dL Hct 26.3 L (36.0-48.0) % MCV 93 (80-98) fL MCH 30 (27-31) pg MCHC 33 (32-36) % Plt Count 168 (150-400) K/uL Neut % (Auto) 71 H (36-66) % Lymph % (Auto) 18 L (24-44) % [place] % (Auto) 9 H (2-6) % Eos % (Auto) 2 (2-4) % Baso % (Auto) 0 (0-1) % Med Orders - Current: Current Medications Hydrocodone Bitart/Acetaminophen ([place] 325-5 Mg) 1 - 2 tab PO Q4H PRN PRN Reason: Pain Last Admin: 12/15/16 08:04 Dose: 2 tab Diphenhydramine HCl (Benadryl) 50 mg IVPUSH Q6H PRN PRN Reason: ITCHING Hydromorphone HCl (Dilaudid Appeals Referee 15 Mg In Ns 30 Ml) 0 mg IV ASDIRECTED PRN; Protocol PRN Reason: LICENSED C[employer]S BROKER PAIN CONTROL Naloxone HCl 0.4 mg/ Sodium (Chloride) 1,001 mls @ 0 mls/hr IV ASDIRECTED PRN; Protocol; Titrate PRN Reason: ITCHING Potassium Chloride/Dextrose/Sod Cl (D5 1/2 Ns W/ 20 Meq/L Kcl) 1,000 mls @ 125 mls/hr IV ASDIRECTED SIL Last Admin: 12/14/16 05:02 Dose: 125 mls/hr Meperidine HCl (Demerol) 75 mg IVPUSH ONETIME PRN PRN Reason: ONCE FOR BREAKTHROUGH PAIN Naloxone HCl (Narcan) 0.1 mg IV ASDIRECTED PRN PRN Reason: decreased respiratory rate Naloxone HCl (Narcan) 0.1 mg IVPUSH Q5M PRN PRN Reason: IF RESP RATE LESS THAN 6 Ondansetron HCl (Zofran) 4 mg IVPUSH Q6H PRN PRN Reason: Nausea/Vomiting Sodium Chloride (Saline Flush) 10 ml FLUSH ASDIRECTED PRN PRN Reason: Keep Vein Open Discontinued Medications Acetaminophen (Tylenol) 650 mg PO Q4H PRN PRN Reason: Pain (Mild 1-3) and fever Bupivacaine HCl (Sensorcaine-Mpf 0.25%) Confirm Administered Dose 10 ml .ROUTE .STK-MED ONE Stop: 12/12/16 23:46 Bupivacaine HCl (Marcaine 0.5%) Confirm Administered Dose 60 ml .ROUTE .STK-MED ONE Stop: 12/13/16 05:51 Cefazolin Sodium (Ancef) Confirm Administered Dose 2 gm .ROUTE .STK-MED ONE Stop: 12/13/16 05:23 Last Admin: 12/13/16 09:00 Dose: Not Given Cefoxitin Sodium (Mefoxin) Confirm Administered Dose 1 gm .ROUTE .STK-MED ONE Stop: 12/13/16 05:16 Dexamethasone (Dexamethasone) Confirm Administered Dose 4 mg .ROUTE .STK-MED ONE Stop: 12/13/16 06:16 Ephedrine Sulfate (Ephedrine Sulfate) 5 mg IVPUSH ONETIME ONE Stop: 12/12/16 17:47 Last Admin: 12/13/16 00:40 Dose: Not Given Ephedrine Sulfate (Ephedrine Sulfate) 5 - 10 mg IVPUSH ASDIRECTED PRN PRN Reason: IF SYSTOLIC BP LESS THAN 100 Fentanyl (Sublimaze) 100 mcg IVPUSH Q1H PRN PRN Reason: Pain (moderate 4-6) Oxytocin/Sodium Chloride (Pitocin In Ns 20 Units/1,000 Ml) 20 unit in 1,000 mls @ 6 mls/hr IV TITRATE SIL; 2 MUNITS/MIN PRN Reason: Protocol Last Titration: 12/13/16 01:15 Dose: 10 munits/min, 30 mls/hr Penicillin G Potassium 5 (millunits/ Sodium Chloride) 50 mls @ 100 mls/hr IV ONETIME ONE Stop: 12/12/16 08:54 Last Admin: 12/12/16 09:11 Dose: 100 mls/hr Penicillin G Potassium 2.5 (millunits/ Sodium Chloride) 50 mls @ 100 mls/hr IV Q4H SIL Last Admin: 12/13/16 08:59 Dose: Not Given Lactated Ringer's (Ringers, Lactated) 1,000 mls @ 999 mls/hr IV .BOLUS ONE Stop: 12/12/16 18:46 Last Admin: 12/12/16 18:11 Dose: 999 mls/hr Lactated Ringer's (Ringers, Lactated) 1,000 mls @ 999 mls/hr IV .BOLUS ONE Stop: 12/12/16 18:46 Last Admin: 12/12/16 19:09 Dose: Not Given Ropivacaine (Naropin 0.2%) Confirm Administered Dose 100 mls @ as directed .ROUTE .STK-MED ONE Stop: 12/12/16 18:11 Ropivacaine (Naropin 0.2%) Confirm Administered Dose 100 mls @ as directed .ROUTE .STK-MED ONE Stop: 12/13/16 00:32 Last Admin: 12/13/16 00:41 Dose: 15 mg Ropivacaine 200 mg/ Premix 100 mls @ 12 mls/hr EPIDUR ASDIRECTED SIL Cefazolin Sodium/Dextrose 2 gm (/ Premix) 50 mls @ 100 mls/hr IV ONETIME ONE Stop: 12/13/16 05:49 Last Admin: 12/13/16 09:01 Dose: Not Given Sodium Chloride (Normal Saline) Confirm Administered Dose 100 mls @ as directed .ROUTE .STK-MED ONE Stop: 12/13/16 05:24 Last Admin: 12/13/16 09:00 Dose: Not Given Lactated Ringer's (Ringers, Lactated) Confirm Administered Dose 2,000 mls @ as directed .ROUTE .[facility] ONE Stop: 12/13/16 05:51 Sodium Chloride (Normal Saline) Confirm Administered Dose 10 mls @ as directed .ROUTE .[facility] ONE Stop: 12/13/16 06:34 Sodium Chloride (Normal Saline) Confirm Administered Dose 10 mls @ as directed .ROUTE .[facility] ONE Stop: 12/13/16 18:55 Misoprostol (Cytotec) 50 mcg VAG ONETIME ONE Stop: 12/12/16 08:12 Last Admin: 12/12/16 08:18 Dose: 50 mcg Morphine Sulfate (Duramorph Pf) Confirm Administered Dose 10 mg .ROUTE .[facility] ONE Stop: 12/13/16 06:08 Morphine Sulfate (Duramorph Pf) 2 - 6 mg EPIDUR Q12H PRN PRN Reason: PAIN Morphine Sulfate (Duramorph Pf) Confirm Administered Dose 10 mg .ROUTE .[facility] ONE Stop: 12/13/16 18:55 Naloxone HCl (Narcan) 0.1 mg IVPUSH Q5M PRN PRN Reason: IF RESP RATE LESS THAN 6 Ondansetron HCl (Zofran Odt) 4 mg PO Q4H PRN PRN Reason: Nausea/Vomiting Last Admin: 12/12/16 19:08 Dose: 4 mg Ondansetron HCl (Zofran) Confirm Administered Dose 4 mg .ROUTE .[facility] ONE Stop: 12/13/16 06:16 Ondansetron HCl (Zofran Odt) 4 mg PO Q6H PRN PRN Reason: Nausea/Vomiting Oxytocin (Pitocin) Confirm Administered [facility] 12/13/16 05:16 Last Admin: 12/13/16 06:59 Dose: 10 unit Oxytocin (Pitocin) Confirm Administered Dose 10 unit .ROUTE .[facility] ONE Stop: 12/13/16 05:51 - Exam General: Reports: alert, oriented, cooperative, no acute distress Lungs: Reports: Clear to auscultation, Normal respiratory effort Cardiovascular: Reports: Regular Rate, Regular Rhythm Abdomen: Reports: bowel sounds present, soft, no tenderness, no distension Back Exam: Reports: Normal Inspection, Full Range of Motion Extremities: Reports: no edema Skin: Reports: warm, dry, intact Wound/Incisions: Reports: healing well Neurological: Reports: no new focal deficit Psy/Mental Status: Reports: alert, normal affect, normal mood *Q Meaningful Use (DIS) - VTE *Q VTE Criteria *Q: - Stroke *Q Stroke Criteria *Q: - AMI *Q AMI Criteria *Q:
[2016-12-15] MEDS ORDERED: Magnesium Hydroxide 400 MG/5 ML Susp 30 ML Cup PO ONE (11:10)
[2016-12-15] MEDS ORDERED: Docusate Sodium 100 MG Cap PO ONE (11:10)
[2016-12-15] MEDS ORDERED: Lanolin 100% Cream 40 GM Tube TOP PRN (13:44)
== END 2016-12-15 13:30 | disposition home or self-care (01) | DRG 775 ==
LOC: JP.OB 07:06 → OBSVTOIN 12-13 05:56 → JP.MS 12-13 06:00 → JP.OB 12-15 13:25 → UNDODISIN 12-15 13:30
PROVIDERS: ADMIT Nurse Practitioner Family; ATTEND Surgery
PROC: 00HU33Z Insertion of Infusion Device into Spinal Canal, Percutaneous Approach (ICD-10-PCS; 2016-12-12)
PROC: 3E033VJ Introduction of Other Hormone into Peripheral Vein, Percutaneous Approach (ICD-10-PCS; principal; 2016-12-13)
DX: O48.0 Post-term pregnancy (principal); Z37.0 Single live birth; O33.9 Maternal care for disproportion, unspecified; O61.0 Failed medical induction of labor; Z3A.41 41 weeks gestation of pregnancy; F41.9 Anxiety disorder, unspecified; O99.343 Other mental disorders complicating pregnancy, third trimester
CPT/HCPCS: 36415; 76830; 76830-26; 80048; 80305; 81001; 85025; 85027; 88307; 99211; A9270-GY; J0690; J0694; J1100; J2270; J2405; J2540; J2590; J2795; J3480; J7050; J7120

== ENCOUNTER 2018-11-05 08:37 | Day surgery (SDC) | payer MEDICAID ==
[2018-11-05] MEDS ORDERED: Bupivacaine 0.5% 50 ML MDV ONE (09:22)
[2018-11-05] MEDS ORDERED: Lidocaine 1% with EPINEPHrine 1:100,000 50 ML MDV ONE (09:22)
[2018-11-05] MEDS ORDERED: Dextrose 5%-Lactated Ringers 1,000 ML IV SCH (10:00)
[2018-11-05] MEDS: cefOXitin 2 GM in Sodium Chloride 0.9% 50 ML IV ONE ×2 (11:18→18:26)
[2018-11-05] MEDS ORDERED: fentaNYL 250 MCG/5 ML SDV ONE ×2 (11:20→11:41)
[2018-11-05] MEDS ORDERED: Succinylcholine 200 MG/10 ML MDV ONE (11:21)
[2018-11-05] MEDS ORDERED: Ondansetron 4 MG/2 ML SDV ONE (11:21)
[2018-11-05] MEDS ORDERED: Glycopyrrolate 0.2 MG/ML 5 ML MDV ONE (11:21)
[2018-11-05] MEDS ORDERED: Rocuronium 50 MG/5 ML Vial ONE (11:21)
[2018-11-05] MEDS ORDERED: Propofol 200 MG/20 ML SDV ONE (11:21)
[2018-11-05] MEDS ORDERED: Neostigmine Methylsulfate 1 MG/ML 5 ML Syringe ONE (11:21)
[2018-11-05] MEDS ORDERED: Dexamethasone 4 MG/ML SDV ONE (11:21)
[2018-11-05] MEDS ORDERED: fentaNYL 100 MCG/2 ML SDV IVPUSH PRN (12:47)
[2018-11-05] MEDS ORDERED: Docusate Sodium 100 MG Cap PO PRN (12:47)
[2018-11-05] MEDS ORDERED: Ondansetron 4 MG/2 ML SDV IVPUSH PRN (12:47)
[2018-11-05] MEDS ORDERED: Acetaminophen/HYDROcodone 325-5 MG Tab PO PRN (12:47)
[2018-11-05] MEDS ORDERED: Lactated Ringers 1,000 ML IV SCH (13:00)
[2018-11-05] MEDS ORDERED: Triamcinolone Acetonide 0.1% Crm 15 GM Tube TOP SCH (14:00)
--- NOTE | 2018-11-05 18:54 | PCM.DCSUM1 ---
Discharge Summary - Hospital Course Free Text/Narrative:: This 22 year old white female complains of months of right side back pain and more recently left upper quadrant abdominal pain with greasy food intake. There was also nausea. A CCK stimulated HIDA was abnormal with an ejection fraction of 26.5. Her abdominal ultrasound was unremarkable except for a fatty liver. Her LFT's were unremarkable. She was admitted on 11/05/2018 for a laparoscopic cholecystectomy and Eduin-cut liver biopsy which was done. She currently is ambulating, eating, feels well, pain control with po meds and wants to go home. She is discharged at this time in good condition. HPI Initial Comments: See above narrative. Diagnosis: Stroke: No - Discharge Data Discharge Date: 11/05/18 Discharge Disposition: Home, Self-Care 01 Condition: Good - Discharge Diagnosis/Problem(s) (1) Chronic cholecystitis SNOMED Code(s): 65145200 ICD Code: K81.1 - CHRONIC CHOLECYSTITIS Status: Acute Current Visit: Yes - Patient Summary/Data Operative Procedure(s) Performed: Laparoscopic cholecystectomy and Eduin-cut liver biopsy. Consults: Consultations 11/05/18 12:47 Respiratory Care Assess and Treatment [CONS] Routine Comment: Physician Instructions: Post-Op Pneumonia Prevention Hospital Course: See above narrative. - Patient Instructions Diet: Usual Diet as Tolerated Activity: As Tolerated (Avoid activity that causes discomfort. ) Driving, Other: Do not drive while taking narcotic pain medication. Showering/Bathing: Shower in AM Notify Provider of: Fever, Increased Pain, Swelling and Redness, Drainage, Nausea and/or Vomiting - Discharge Plan *PRESCRIPTION DRUG MONITORING PROGRAM REVIEWED*: No *COPY OF PRESCRIPTION DRUG MONITORING REPORT IN PATIENT YAJAIRA: No Prescriptions/Med Rec: Acetaminophen/HYDROcodone [[place] 325-5 MG] 2 tab PO Q6H PRN #30 tablet PRN Reason: Pain (Moderate 4-6) Home Medications: Home Meds Triamcinolone Acetonide [IJD: Triamcinolone Acetonide 0.1% Crm] 1 applicful TOP TID 11/07/16 [History] Ondansetron HCl [Zofran] 4 mg PO Q8H 11/03/18 [History] busPIRone [Buspar] 10 mg PO BID 11/03/18 [History] Acetaminophen/HYDROcodone [[place] 325-5 MG] 2 tab PO Q6H PRN #30 tablet 11/05/18 [Rx] Docusate Sodium [Colace] 100 mg PO BID PRN cap 11/05/18 [Rx] Referrals: Reji Greenfield MD [Physician] - (See me in [facility] in about two weeks. ) - Discharge Summary/Plan Comment DC Time >30 min.: Yes - Patient Data Vitals - Most Recent: Last Vital Signs Temp 98.1 F 11/05/18 15:00 Pulse 90 11/05/18 16:30 Resp 16 11/05/18 16:30 BP 120/78 11/05/18 16:30 Pulse Ox 95 11/05/18 16:30 Weight - Most Recent: 205 lb I&O - Last 24 hours: Intake & Output 11/05/18 11/05/18 11/05/18 06:59 14:59 22:59 Intake Total 100 820 Balance 100 820 Lab Results - Last 24 hrs: Laboratory Results - last 24 hr 11/05/18 11/05/18 11/05/18 Range/Units 08:45 08:45 09:00 WBC 5.5 (4.5-11.0) K/uL RBC 4.90 (3.30-5.50) M/uL Hgb 14.2 D (12.0-15.0) g/dL Hct 44.3 (36.0-48.0) % MCV 90 (80-98) fL MCH 29 (27-31) pg MCHC 32 (32-36) % Plt Count 185 (150-400) K/uL Sodium 141 (140-148) mmol/L Potassium 4.0 (3.6-5.2) mmol/L Chloride 105 (100-108) mmol/L Carbon Dioxide 25 (21-32) mmol/L Anion Gap 11.3 (5.0-14.0) mmol/L BUN 12 (7-18) mg/dL Creatinine 0.8 (0.6-1.0) mg/dL Est Cr Clr Drug Dosing 95.25 mL/min Estimated GFR (MDRD) > 60 (>60) Glucose 102 (74-106) mg/dL Calcium 9.6 (8.5-10.1) mg/dL Total Bilirubin 0.2 (0.2-1.0) mg/dL AST 19 (15-37) U/L ALT 46 (12-78) U/L Alkaline Phosphatase 62 (46-116) U/L Total Protein 7.7 (6.4-8.2) g/dL Albumin 3.9 (3.4-5.0) g/dL Globulin 3.8 H (2.3-3.5) g/dL Albumin/Globulin Ratio 1.0 L (1.2-2.2) Urine HCG, Qual Negative BIANCA Results - Last 24 hrs: Microbiology 11/05/18 12:11 Gram Stain - Final Gallbladder Med Orders - Current: Current Medications Hydrocodone Bitart/Acetaminophen ([place] 325-5 Mg) 2 tab PO Q4H PRN PRN Reason: Pain (moderate 4-6) Last Admin: 11/05/18 14:21 Dose: 1 tab Buspirone HCl (Buspar) 10 mg PO BID SIL Docusate Sodium (Colace) 100 mg PO BID PRN PRN Reason: Constipation Fentanyl (Sublimaze) 50 mcg IVPUSH Q1H PRN PRN Reason: Pain (severe 7-10) Dextrose/Lactated Ringer's (Dextrose 5%-Lactated Ringers) 1,000 mls @ 100 mls/ hr IV ASDIRECTED [facility] Last Admin: 11/05/18 09:55 Dose: 100 mls/hr Lactated Ringer's (Ringers, Lactated) 1,000 mls @ 125 mls/hr IV ASDIRECTED [facility] Last Admin: 11/05/18 14:20 Dose: 125 mls/hr Ondansetron HCl (Zofran) 4 mg IVPUSH Q6H PRN PRN Reason: Nausea/Vomiting Triamcinolone Acetonide (Triamcinolone Acetonide 0.1% Crm) [address] [facility] Last Admin: 11/05/18 16:58 Dose: Not Given Discontinued Medications Bupivacaine HCl (Marcaine 0.5%) Confirm Administered Dose 50 ml .ROUTE .STK-MED ONE Stop: 11/05/18 09:23 Last Admin: 11/05/18 11:52 Dose: 20 ml Dexamethasone (Dexamethasone) Confirm Administered Dose 4 mg .ROUTE .STK-MED ONE Stop: 11/05/18 11:22 Fentanyl (Sublimaze) Confirm Administered Dose 250 mcg .ROUTE .STK-MED ONE Stop: 11/05/18 11:21 Fentanyl (Sublimaze) Confirm Administered Dose 250 mcg .ROUTE .STK-MED ONE Stop: 11/05/18 11:42 Glycopyrrolate (Robinul) Confirm Administered Dose 1 mg .ROUTE .STK-MED ONE Stop: 11/05/18 11:22 Cefoxitin Sodium 2 gm/ Sodium (Chloride) 50 mls @ 100 mls/hr IV ONETIME ONE Stop: 11/05/18 10:59 Last Admin: 11/05/18 18:26 Dose: Not Given Lidocaine/Epinephrine (Xylocaine 1% With Epinephrine 1:100,000) Confirm Administered Dose 50 ml .ROUTE .STK-MED ONE Stop: 11/05/18 09:23 Last Admin: 11/05/18 11:52 Dose: 20 ml Neostigmine Methylsulfate (Neostigmine) Confirm Administered Dose 5 mg .ROUTE .STK-MED ONE Stop: 11/05/18 11:22 Ondansetron HCl (Zofran) Confirm Administered Dose 4 mg .ROUTE .STK-MED ONE Stop: 11/05/18 11:22 Propofol (Diprivan 20 Ml) Confirm Administered Dose 200 mg .ROUTE .STK-MED ONE Stop: 11/05/18 11:22 Rocuronium [place] (Zemuron) Confirm Administered Dose 50 mg .ROUTE .STK-MED ONE Stop: 11/05/18 11:22 Succinylcholine Chloride (Quelicin) Confirm Administered Dose 200 mg .ROUTE .STK -MED ONE Stop: 11/05/18 11:22
[2018-11-05 19:58] VITALS: BP 122/74
[2018-11-05] MEDS ORDERED: busPIRone 10 MG Tab PO SCH (21:00)
--- NOTE | 2018-11-06 08:06 | OR ---
DATE OF PROCEDURE: 11/05/2018 PREOPERATIVE DIAGNOSES: 1. Chronic cholecystitis with biliary dyskinesia. 2. Diffuse hepatic steatosis. POSTOPERATIVE DIAGNOSES: 1. Chronic cholecystitis with biliary dyskinesia. 2. Diffuse hepatic steatosis. PROCEDURES: Laparoscopic cholecystectomy and Eduin-Cut needle liver biopsy. SURGEON: Reji Greenfield MD ANESTHESIA: General endotracheal. INDICATION: This 22-year-old white female complains of intermittent episodes of upper abdominal pain after eating greasy food. She thought the pain was worse on the left when compared to the right. She also experienced nausea with greasy foods. A CCK- stimulated HIDA scan showed an ejection fraction of only 26.5% consistent with chronic cholecystitis and biliary dyskinesia. Followup ultrasound showed a normal ductal system with no evidence of cholelithiasis. Her liver functions were unremarkable. She is admitted for a laparoscopic cholecystectomy and Eduin-Cut liver biopsy. I counseled her for surgery, including risks and alternatives, and she gave her informed consent to proceed. DESCRIPTION OF PROCEDURE: After adequate general endotracheal anesthesia was obtained, the patient's abdomen was prepped and draped in the usual sterile fashion. The leg compression stockings were in place and used during the entire procedure. Time-out was held. An infraumbilical semicircular incision was made. Under direct vision, a 12-mm port was introduced into the abdomen through this incision using the Optiview technique. The camera was introduced into the abdomen, and the abdomen was insufflated to a pressure of 15 mmHg with carbon dioxide. No evidence of intraabdominal injury was seen. Under direct vision, a 12-mm port was placed in the epigastrium and a 5-mm port was placed in the right lower quadrant. A small incision was made in the right upper quadrant and through this, a Eduin-Cut needle biopsy device was introduced into the abdomen. We then obtained a Eduin-Cut biopsy of the liver. This generated a nice sample which was sent to pathology. Hemostasis was obtained with electrocautery. The gallbladder was then grasped and elevated. It was noted to have multiple adhesions to it consistent with chronic cholecystitis. These were dissected free. The cystic duct and arteries were dissected free. They were then each clipped separately up on the gallbladder and a couple of times proximally and divided between clips. The gallbladder was then dissected free from the gallbladder bed using Bovie electrocautery. The gallbladder was placed in a sample retrieval bag and elevated up through the anterior abdominal wall via the epigastric port site. There was little leakage of bile, but no gross leakage, and the source of this was unknown, other than being from the gallbladder. The gallbladder was cultured off the field. The epigastric port was reintroduced back into the abdomen. The gallbladder bed was irrigated and suctioned dry, all looked well. The fascial closure device was used to place a 0 Vicryl stitch in the epigastric fascial defect. The infraumbilical port was removed with an interrupted stitch of 0 Vicryl used to close this fascial defect. We evacuated as much CO2 from the abdomen as we could via the 5-mm port site in the right lower quadrant and then this port was removed. Lidocaine 1% with epinephrine in a 50:50 mix with 0.5% Marcaine was infiltrated about all incisions. 4-0 Vicryl using a subcuticular stitch was placed to approximate the skin of the incisions. Dermabond was applied. The anesthesia was reversed. She was extubated and brought to recovery room in a good condition. Reji Greenfield MD /[id number] [email or web address]
== END 2018-11-05 19:45 | disposition home or self-care (01) ==
LOC: JP.SDS 08:37 → JP.MS 12:47 → JP.SDS 19:45
PROVIDERS: ATTEND Surgery
DX: K81.2 Acute cholecystitis with chronic cholecystitis (principal); K75.81 Nonalcoholic steatohepatitis (NASH); K74.0 Hepatic fibrosis; F41.9 Anxiety disorder, unspecified; E66.9 Obesity, unspecified; Z68.35 Body mass index [BMI] 35.0-35.9, adult; Z79.899 Other long term (current) drug therapy
CPT/HCPCS: 36415; 47379; 47562; 80053; 81025; 85027; 87070; 87075; 87205; 88304; 88307; 88313; A9270; J0330; J0694; J1100; J2405; J2704; J2710; J3010; J3490; J7042; J7050; J7120

== ENCOUNTER 2019-09-20 22:07 | Emergency (ER) | payer MEDICAID ==
[2019-09-20] MEDS ORDERED: Ondansetron 4 MG/2 ML SDV IVPUSH ONE (23:03)
[2019-09-20] MEDS ORDERED: Sodium Chloride 0.9% 10 ML Syringe FLUSH PRN (23:03)
--- NOTE | 2019-09-20 23:05 | EDM.PDOC ---
ED HPI GENERAL MEDICAL PROBLEM - General Chief Complaint: Gastrointestinal Problem Stated Complaint: UPPER ABD PAIN & VOMITING Time Seen by Provider: 09/20/19 23:00 Source of Information: Reports: Patient, Family, RN Notes Reviewed History Limitations: Reports: No Limitations - History of Present Illness INITIAL COMMENTS - FREE TEXT/NARRATIVE: 23-year-old female presents emergency department a complaint of nausea vomiting diarrhea, she states is been ill for about the last 24 hours feels weak and rundown no fevers abd Pain Score (Numeric/FACES): 4 - Related Data Allergies Allergy/AdvReac Type Severity Reaction Status Date / Time No Known Allergies Allergy Verified 09/20/19 22:51 Home Meds: Home Meds NK [No Known Home Meds] 09/20/19 [History] Past Medical History Gastrointestinal History: Reports: Cholelithiasis [employer] History: Reports: Psychiatric History: Reports: Anxiety, Depression - Past Surgical History GI Surgical History: Reports: Cholecystectomy Female Surgical History: Reports: Section Social & Family History - Family History Family Medical History: Noncontributory - Tobacco Use Smoking Status *Q: Never Smoker - Caffeine Use Caffeine Use: Reports: None - Recreational Drug Use Recreational Drug Use: No ED ROS GENERAL - Review of Systems Review Of Systems: See Below Constitutional: Denies: Fever, Chills HEENT: Reports: No Symptoms Respiratory: Reports: No Symptoms Cardiovascular: Reports: No Symptoms GI/Abdominal: Reports: Diarrhea, Nausea, Vomiting. Denies: Abdominal Pain ED EXAM, GI/ABD - Physical Exam Exam: See Below Exam Limited By: No Limitations General Appearance: Alert, WD/WN, No Apparent Distress Throat/Mouth: Normal Inspection, Normal Lips, Normal Teeth, Normal Gums, Normal Oropharynx, Normal Voice, No Airway Compromise Head: Atraumatic, Normocephalic Neck: Normal Inspection, Supple, Non-Tender, Full Range of Motion Respiratory/Chest: No Respiratory Distress, Lungs Clear, Normal Breath Sounds, No Accessory Muscle Use, Chest Non-Tender Cardiovascular: Regular Rate, Rhythm, No Murmur GI/Abdominal Exam: Normal Bowel Sounds, Soft, Non-Tender, No Distention Course - Vital Signs Last Recorded V/S: Last Vital Signs Temp 96.5 F L 09/20/19 23:42 Pulse 90 09/20/19 23:42 Resp 16 09/20/19 23:42 BP 117/75 09/20/19 23:42 Pulse Ox 99 09/20/19 23:42 - Orders/Labs/Meds Orders: Active Orders 24 hr Category Date Time Status Peripheral IV Care [RC] . DIRECTED Care 09/20/19 23:03 Active Lactated Ringers [Ringers, Lactated] 1,000 ml Med 09/20/19 23:15 Active IV ASDIRECTED Sodium Chloride 0.9% [Saline Flush] Med 09/20/19 23:03 Active 10 ml FLUSH ASDIRECTED PRN Peripheral IV Insertion Adult [OM.PC] Urgent Oth 09/20/19 23:03 Ordered Medication Orders Lactated Ringer's (Ringers, Lactated) 1,000 mls @ 999 mls/hr IV ASDIRECTED SIL Last Admin: 09/20/19 23:27 Dose: 999 mls/hr Sodium Chloride (Saline Flush) 10 ml FLUSH ASDIRECTED PRN PRN Reason: Keep Vein Open Last Admin: 09/20/19 23:27 Dose: 10 ml Labs: Laboratory Tests 09/20/19 09/20/19 09/20/19 Range/Units 23:05 23:05 23:05 WBC 13.6 H (4.5-11.0) K/uL RBC 4.87 (3.30-5.50) M/uL Hgb 14.2 (12.0-15.0) g/dL Hct 43.6 (36.0-48.0) % MCV 90 (80-98) fL MCH 29 (27-31) pg MCHC 33 (32-36) % Plt Count 183 (150-400) K/uL Neut % (Auto) 91 H (36-66) % Lymph % (Auto) 4 L (24-44) % [place] % (Auto) 4 (2-6) % Eos % (Auto) 0 L (2-4) % Baso % (Auto) 0 (0-1) % Sodium 140 (140-148) mmol/L Potassium 3.7 (3.6-5.2) mmol/L Chloride 102 (100-108) mmol/L Carbon Dioxide 23 (21-32) mmol/L Anion Gap 14.7 H (5.0-14.0) mmol/L BUN 15 (7-18) mg/dL Creatinine 0.9 (0.6-1.0) mg/dL Est Cr Clr Drug Dosing 91.01 mL/min Estimated GFR (MDRD) > 60 (>60) Glucose 117 H (74-106) mg/dL Lactic Acid 2.6 H (0.4-2.0) mmol/L Calcium 9.0 (8.5-10.1) mg/dL Total Bilirubin 0.7 D (0.2-1.0) mg/dL AST 19 (15-37) U/L ALT 37 (12-78) U/L Alkaline Phosphatase 57 (46-116) U/L Total Protein 7.6 (6.4-8.2) g/dL Albumin 4.0 (3.4-5.0) g/dL Globulin 3.6 H (2.3-3.5) g/dL Albumin/Globulin Ratio 1.1 L (1.2-2.2) Lipase 48 L (73-393) U/L Urine Color (YELLOW) Urine Appearance (CLEAR) Urine pH (5.0-8.0) Ur Specific [place] (1.008-1.030) Urine Protein (NEGATIVE) mg/dL Urine Glucose (UA) (NEGATIVE) mg/dL Urine Ketones (NEGATIVE) mg/dL Urine Occult Blood (NEGATIVE) Urine Nitrite (NEGATIVE) Urine Bilirubin (NEGATIVE) Urine Urobilinogen (0.2-1.0) EU/dL Ur Leukocyte Esterase (NEGATIVE) Urine RBC (0-5) Urine WBC (0-5) Ur Epithelial Cells Amorphous Sediment Urine Bacteria Urine Mucus 09/20/19 Range/Units 23:25 WBC (4.5-11.0) K/uL RBC (3.30-5.50) M/uL Hgb (12.0-15.0) g/dL Hct (36.0-48.0) % MCV (80-98) fL MCH (27-31) pg MCHC (32-36) % Plt Count (150-400) K/uL Neut % (Auto) (36-66) % Lymph % (Auto) (24-44) % [place] % (Auto) (2-6) % Eos % (Auto) (2-4) % Baso % (Auto) (0-1) % Sodium (140-148) mmol/L Potassium (3.6-5.2) mmol/L Chloride (100-108) mmol/L Carbon Dioxide (21-32) mmol/L Anion Gap (5.0-14.0) mmol/L BUN (7-18) mg/dL Creatinine (0.6-1.0) mg/dL Est Cr Clr Drug Dosing mL/min Estimated GFR (MDRD) (>60) Glucose (74-106) mg/dL Lactic Acid (0.4-2.0) mmol/L Calcium (8.5-10.1) mg/dL Total Bilirubin (0.2-1.0) mg/dL AST (15-37) U/L ALT (12-78) U/L Alkaline Phosphatase (46-116) U/L Total Protein (6.4-8.2) g/dL Albumin (3.4-5.0) g/dL Globulin (2.3-3.5) g/dL Albumin/Globulin Ratio (1.2-2.2) Lipase (73-393) U/L Urine Color Yellow (YELLOW) Urine Appearance Slightly cloudy A (CLEAR) Urine pH 6.0 (5.0-8.0) Ur Specific [place] >= 1.030 (1.008-1.030) Urine Protein 30 H (NEGATIVE) mg/dL Urine Glucose (UA) Negative (NEGATIVE) mg/dL Urine Ketones Negative (NEGATIVE) mg/dL Urine Occult Blood Negative (NEGATIVE) Urine Nitrite Negative (NEGATIVE) Urine Bilirubin Negative (NEGATIVE) Urine Urobilinogen 0.2 (0.2-1.0) EU/dL Ur Leukocyte Esterase Negative (NEGATIVE) Urine RBC 0-5 (0-5) Urine WBC 0-5 (0-5) Ur Epithelial Cells Moderate Amorphous Sediment Not seen Urine Bacteria Few Urine Mucus Not seen Meds: Medications Generic Name Dose Route Start Last Admin Trade Name Freq PRN Reason Stop Dose Admin Lactated Ringer's 1,000 mls @ 999 mls/hr 09/20/19 23:15 09/20/19 23:27 Ringers, Lactated IV 999 mls/hr ASDIRECTED SIL Administration Sodium Chloride 10 ml 09/20/19 23:03 09/20/19 23:27 Saline Flush FLUSH 10 ml ASDIRECTED PRN Administration Keep Vein Open Discontinued Medications Generic Name Dose Route Start Last Admin Trade Name Freq PRN Reason Stop Dose Admin Ondansetron HCl 4 mg 09/20/19 23:03 09/20/19 23:26 Zofran IVPUSH 09/20/19 23:04 4 mg ONETIME ONE Administration Departure - Departure Time of Disposition: 00:32 Disposition: Home, Self-Care 01 Condition: Good Clinical Impression: Gastroenteritis - Discharge Information Instructions: Viral Gastroenteritis, Adult Referrals: Debra Herndon CNM [Primary Care Provider] - Forms: ED Department Discharge Additional Instructions: Continue to push fluids, use Zofran as needed for nausea and vomiting symptoms, please followup with your primary care provider in 3-5 days if not better, please call return to the emergency department with worsening of symptoms. Sepsis Event Note - Evaluation Sepsis Screening Result: Possible Sepsis Risk - Focused Exam Vital Signs: Vital Signs Temp Pulse Resp BP Pulse Ox 09/20/19 23:42 96.5 F L 90 16 117/75 99 09/20/19 22:55 96.3 F L 110 H 16 133/96 H 98 09/20/19 22:45 96.3 F L 110 H 16 133/96 H 98 Date Exam was Performed: 09/21/19 Time Exam was Performed: 00:31 - My Orders Last 24 Hours: My Active Orders 09/20/19 23:03 Peripheral IV Care [RC] . DIRECTED Sodium Chloride 0.9% [Saline Flush] 10 ml FLUSH ASDIRECTED PRN Peripheral IV Insertion Adult [OM.PC] Urgent 09/20/19 23:15 Lactated Ringers [Ringers, Lactated] 1,000 ml IV ASDIRECTED - Assessment/Plan Last 24 Hours: My Active Orders 09/20/19 23:03 Peripheral IV Care [RC] . DIRECTED Sodium Chloride 0.9% [Saline Flush] 10 ml FLUSH ASDIRECTED PRN Peripheral IV Insertion Adult [OM.PC] Urgent 09/20/19 23:15 Lactated Ringers [Ringers, Lactated] 1,000 ml IV ASDIRECTED Plan: Assessment Acuity = acute Site and laterality = gastroenteritis Etiology = probable viral Manifestations = none Location of injury = Home Lab values = WBC elevated 13.6 consistent leukocytosis lactic acid slightly elevated 2.6 consistent lactic acidosis remainder CMP unremarkable, urinalysis unremarkable Plan Good improvement with 1 L fluids and Zofran discharged home with Zofran ODT 4 mg 1 tab p.o. 3 times daily PRN total #5 follow-up primary care 3 to 5 days if not better This note was dictated using [employer] recognition software please call with any questions on syntax or grammar.
[2019-09-20] MEDS ORDERED: Lactated Ringers 1,000 ML IV SCH (23:15)
[2019-09-20 23:43] VITALS: BP 117/75; PULSE 90
== END 2019-09-21 00:39 | disposition home or self-care (01) ==
LOC: JP.ED 22:07
DX: K52.9 Noninfective gastroenteritis and colitis, unspecified (principal); Z90.49 Acquired absence of other specified parts of digestive tract
CPT/HCPCS: 36415; 80053; 81001; 83605; 83690; 85025; 96361; 96374; 99284; J2405; J7120

== ENCOUNTER 2019-11-03 14:06 | Emergency (ER) | payer MEDICAID ==
[2019-11-03 14:32] VITALS: BP 128/86; PULSE 86
--- NOTE | 2019-11-03 14:52 | EDM.PDOC ---
ED HPI GENERAL MEDICAL PROBLEM - General Chief Complaint: Chest Pain Stated Complaint: CHEST PAIN Time Seen by Provider: 11/03/19 14:45 Source of Information: Reports: Patient, Old Records, RN History Limitations: Reports: No Limitations - History of Present Illness INITIAL COMMENTS - FREE TEXT/NARRATIVE: 23 yo female with a pHx of anxiety and who has per her report been taking Buspar without benefit presents with mild anterior chest discomfort for a few weeks that is worse when she has a panic attack. Had her last panic attack last night. Had an appt later today with her primary, but when they found out she had the chest discomfort they refused to see her and told her she had to come to the ER. She has no hx of CAD, AODM, HTN, or hyperlipidemia. Feels anxious now. Has no current nausea, SOB, pain radiation, or calf pain/LE edema. No self tx. Onset: Gradual Duration: Week(s):, Waxing/Waning Location: Reports: Chest Quality: Reports: Other (mild tightness) Severity: Mild Improves with: Reports: None Worsens with: Reports: Other (panic attacks) Context: Reports: Other (See HPI) Associated Symptoms: Reports: Chest Pain. Denies: Cough, Fever/Chills, Nausea/ Vomiting, Rash, Shortness of Breath Treatments SOUND TECHNICIAN: Reports: Other (see below) (none) Chest Pain Score (Numeric/FACES): 4 - Related Data Allergies Allergy/AdvReac Type Severity Reaction Status Date / Time No Known Allergies Allergy Verified 11/03/19 14:33 Home Meds: Home Meds ALPRAZolam [Xanax] 0.25 mg PO BID PRN #8 tablet 11/03/19 [Rx] Sertraline HCl [Zoloft] 50 mg PO DAILY #30 tablet 11/03/19 [Rx] busPIRone [Buspar] 10 mg PO BID 11/03/19 [History] Past Medical History Gastrointestinal History: Reports: Cholelithiasis, Other (See Below) Other Gastrointestinal History: fatty liver RESEARCH PROGRAM INTERN History: Reports: Neurological History: Reports: Migraines Psychiatric History: Reports: Anxiety, Depression, Panic Attack, Suicidal Ideation Endocrine/Metabolic History: Reports: Obesity/BMI 30+ - Past Surgical History GI Surgical History: Reports: Cholecystectomy, Other (See Below) Other GI Surgeries/Procedures: liver liver biopsy Female Surgical History: Reports: Section Social & Family History - Family History Family Medical History: Noncontributory - Tobacco Use Smoking Status *Q: Never Smoker - Caffeine Use Caffeine Use: Reports: Coffee - Recreational Drug Use Recreational Drug Use: No ED ROS GENERAL - Review of Systems Review Of Systems: See Below Constitutional: Reports: No Symptoms. Denies: Fever, Chills, Diaphoresis HEENT: Reports: No Symptoms Respiratory: Denies: Shortness of Breath, Wheezing, Pleuritic Chest Pain, Cough , Sputum, Hemoptysis Cardiovascular: Reports: Chest Pain (mild anterior tightness without radiation. ). Denies: Blood Pressure Problem, Dyspnea on Exertion, Edema, Orthopnea, Palpitations, PND, Syncope Endocrine: Reports: No Symptoms GI/Abdominal: Reports: No Symptoms : Reports: No Symptoms Musculoskeletal: Reports: No Symptoms Skin: Reports: No Symptoms Neurological: Reports: No Symptoms Psychiatric: Reports: Anxiety ED EXAM, GENERAL - Physical Exam Exam: See Below Exam Limited By: No Limitations General Appearance: Alert, WD/WN, No Apparent Distress Eye Exam: Bilateral Eye: Normal Inspection Ears: Normal External Exam, Normal Canal, Hearing Grossly Normal Ear Exam: Bilateral Ear: Auricle Normal, Canal Normal Nose: Normal Inspection, No Blood Throat/Mouth: Normal Inspection, Normal Lips, Normal Oropharynx, Normal Voice, No Airway Compromise Head: Atraumatic, Normocephalic Neck: Normal Inspection Respiratory/Chest: No Respiratory Distress, Lungs Clear, Normal Breath Sounds, No Accessory Muscle Use, Chest Non-Tender. No: Respiratory Distress, Decreased Breath Sounds, Crackles, Rales, Rhonchi, Wheezing, Retractions Cardiovascular: Regular Rate, Rhythm, No Edema GI/Abdominal: Normal Bowel Sounds, Soft, Non-Tender, No Distention. No: Distended, Guarding, Rigid, Rebound, Tender, Abnormal Bowel Sounds, Hernia Back Exam: Normal Inspection. No: CVA Tenderness (R), CVA Tenderness (L) Extremities: Normal Inspection, Normal Range of Motion, Non-Tender, No Pedal Edema Neurological: Alert, Oriented, CN II-XII Intact, Normal Cognition, No Motor/ Sensory Deficits Psychiatric: Normal Affect, Normal Mood Skin Exam: Warm, Dry, Intact, Normal Color, No Rash EKG INTERPRETATION EKG Date: 11/03/19 Time: 14:45 Rhythm: NSR Rate (Beats/Min): 77 [place]: Normal P-Wave: Present QRS: Normal ST-T: Normal QT: Normal Comparison: NA - No Prior EKG Course - Vital Signs Last Recorded V/S: Last Vital Signs Temp 36.9 C 11/03/19 14:31 Pulse 86 11/03/19 14:31 Resp 18 11/03/19 14:31 BP 128/86 11/03/19 14:31 Pulse Ox 96 11/03/19 14:31 - Orders/Labs/Meds Orders: Active Orders 24 hr Category Date Time Status EKG Documentation Completion [RC] ASDIRECTED Care 11/03/19 14:06 Active EKG 12 Lead [EK] Routine Ther 11/03/19 14:06 Ordered Meds: Medications Discontinued Medications Generic Name Dose Route Start Last Admin Trade Name Freq PRN Reason Stop Dose Admin Alprazolam 0.25 mg 11/03/19 14:58 Xanax PO 11/03/19 14:59 ONETIME ONE Departure - Departure Time of Disposition: 15:15 Disposition: Home, Self-Care 01 Condition: Good Clinical Impression: Anxiety, Nonspecific chest pain Prescriptions: ALPRAZolam [Xanax] 0.25 mg PO BID PRN #8 tablet PRN Reason: Anxiety Sertraline HCl [Zoloft] 50 mg PO DAILY #30 tablet Instructions: Nonspecific Chest Pain, Adult, [id number], Living With Anxiety Referrals: PCP,None [Primary Care Provider] - Forms: ED Department Discharge Additional Instructions: Use generic Zoloft 50 mg daily starting today. Take alprazolam 0.25 mg ever 12 hrs as needed for panic attacks. F/U with your provider when able to get an appt. Return if a lot worse. Sepsis Event Note - Evaluation Sepsis Screening Result: No Definite Risk - Focused Exam Vital Signs: Vital Signs Temp Pulse Resp BP Pulse Ox 11/03/19 14:31 36.9 C 86 18 128/86 96 Date Exam was Performed: 11/03/19 Time Exam was Performed: 15:01 - My Orders Last 24 Hours: My Active Orders 11/03/19 14:06 EKG Documentation Completion [RC] ASDIRECTED EKG 12 Lead [EK] Routine - Assessment/Plan Last 24 Hours: My Active Orders 11/03/19 14:06 EKG Documentation Completion [RC] ASDIRECTED EKG 12 Lead [EK] Routine
[2019-11-03] MEDS ORDERED: ALPRAZolam 0.25 MG Tab PO ONE (14:58)
== END 2019-11-03 15:17 | disposition home or self-care (01) ==
LOC: JP.ED 14:06
DX: F41.9 Anxiety disorder, unspecified (principal); F32.9 Major depressive disorder, single episode, unspecified; E66.9 Obesity, unspecified; Z79.899 Other long term (current) drug therapy
CPT/HCPCS: 93005; 99284; A9270

== ENCOUNTER 2020-07-26 05:29 | Inpatient (IN) | payer MEDICAID ==
[2020-07-26] MEDS ORDERED: Lactated Ringers 1,000 ML IV SCH (06:00)
[2020-07-26] MEDS ORDERED: Oxytocin 10 Units/1 ML SDV ONE ×2 (06:35→06:58)
[2020-07-26] MEDS ORDERED: cefOXitin 1 GM Vial ONE (06:35)
[2020-07-26] MEDS ORDERED: Phenylephrine 1% 10 MG/ML SDV ONE (06:58)
[2020-07-26] MEDS ORDERED: Ondansetron 4 MG/2 ML SDV ONE (06:58)
[2020-07-26] MEDS ORDERED: Sodium Chloride 0.9% 30 ML ONE (06:59)
[2020-07-26] MEDS ORDERED: cefOXitin 2 GM Vial ONE (06:59)
[2020-07-26] MEDS ORDERED: ePHEDrine 50 MG/ML SDV ONE (06:59)
[2020-07-26] MEDS ORDERED: Lactated Ringers 1,000 ML ONE (07:02)
[2020-07-26] MEDS ORDERED: Sodium Chloride 0.9% 500 ML ONE (08:28)
[2020-07-26] MEDS ORDERED: fentaNYL 100 MCG/2 ML SDV ONE (09:25)
[2020-07-26] MEDS ORDERED: hydrOXYzine HCL 100 MG/2 ML SDV IM PRN (10:44)
[2020-07-26] MEDS ORDERED: Ondansetron 4 MG/2 ML SDV IVPUSH PRN (10:44)
[2020-07-26] MEDS: oxyCODONE 5 MG Tab PO PRN ×4 (10:55→23:37)
[2020-07-26] MEDS: Acetaminophen 500 MG Tab PO SCH ×3 (11:30→23:38)
[2020-07-26] MEDS ORDERED: ePHEDrine 50 MG/ML SDV IVPUSH PRN (11:44)
[2020-07-26] MEDS: Dextrose 5%-Lactated Ringers 1,000 ML IV SCH ×2 (12:04→19:14)
[2020-07-26] MEDS: cefOXitin 2 GM in Sodium Chloride 0.9% 50 ML IV SCH ×3 (12:07→23:37)
[2020-07-26] MEDS: Ibuprofen 600 MG Tab PO SCH ×2 (14:55→20:40)
[2020-07-26] MEDS: Sertraline 50 MG Tab PO SCH (14:55)
[2020-07-27] MEDS: Dextrose 5%-Lactated Ringers 1,000 ML IV SCH (01:53)
[2020-07-27] MEDS: Ibuprofen 600 MG Tab PO SCH ×2 (02:53→07:46)
[2020-07-27 04:34] VITALS: BP 109/57; PULSE 80
[2020-07-27] MEDS: oxyCODONE 5 MG Tab PO PRN ×2 (04:34→10:42)
[2020-07-27] MEDS: Acetaminophen 500 MG Tab PO SCH ×2 (04:35→10:37)
[2020-07-27] MEDS: cefOXitin 2 GM in Sodium Chloride 0.9% 50 ML IV SCH (05:47)
[2020-07-27] MEDS: Sertraline 50 MG Tab PO SCH ×2 (07:46→12:46)
[2020-07-27] MEDS ORDERED: Magnesium Hydroxide 400 MG/5 ML Susp 30 ML Cup PO PRN (07:50)
[2020-07-27] MEDS ORDERED: Docusate Sodium 100 MG Cap PO SCH (09:00)
--- NOTE | 2020-07-27 10:19 | DISCH ---
ADMISSION DIAGNOSES: Term , repeat , positive GBS test, and anxiety. DISCHARGE DIAGNOSIS: section on 07/26/2020. Surgeon: Ky Mcgovern MD. HISTORY: Debra Oviedo is a 24-year-old female with term and elective repeat C- section. After preoperative evaluation and discussion of possible risks and possible complications, she wished to proceed with surgical procedure. HOSPITAL COURSE: Debra had her surgery on 07/26/2020 with delivery of viable male. On postoperative day #1, she was ready to be discharged to home and will be traveling to [facility] to be with her baby who is being treated with antibiotics. PHYSICAL EXAMINATION: GENERAL: Debra is a pleasant 24-year-old female. VITAL SIGNS: Height is 5 feet 6.14 inches, weight is 228 pounds, BMI is 36.7. TPR is 96.3, 80, 18, blood pressure 109/57. HEENT: Negative. NECK: Supple. HEART: Regular rate and rhythm. LUNGS: Clear. ABDOMEN: Incision looks good. It is glued. EXTREMITIES: Revealed trace peripheral edema. DISPOSITION: Discharged to home. CONDITION: Stable and improving. FOLLOWUP APPOINTMENT: Madelyn Gonzalez PA-C, at [facility] on 08/04/2020, 10:15 a.m. HOME MEDICATIONS: 1. Oxycodone 5 mg q.4 hours p.r.n. pain, #40. 2. Colace 100 mg oral b.i.d., #60. 3. Milk of magnesia 30 mL 1 daily, 2 were sent home with the patient. 4. Ibuprofen 600 mg oral q.6 hours #40. 5. Tylenol Extra Strength 1000 mg oral q.6 hours p.r.n. pain. 6. Continue home medication of Xanax 0.25 mg twice daily p.r.n. anxiety. 7. vitamins 1 daily. 8. Sertraline/Zoloft 50 mg oral daily. DIET: Regular diet as tolerated. Drink 8 to 10 glasses of water a day. ACTIVITY: No lifting over 10 pounds for 6 weeks. You can lift baby in car seat. Driving: Do not drive for 1 week or within 6 hours after taking narcotic pain medication. Shower/bathing: May shower. DISCHARGE INSTRUCTIONS: Notify provider if any fever, increased pain, swelling, redness, drainage, nausea, or vomiting. Wound incision care: Keep site clean and dry. Wear abdominal binder for 2 weeks and then as tolerated. Use incentive spirometer 10 times every hour while awake for 1 week. /[id number]
--- NOTE | 2020-08-01 12:45 | OR ---
DATE OF PROCEDURE: 07/26/2020 SURGEON: Ky Mcgovern MD PREOPERATIVE DIAGNOSIS: Term with history of previous section. POSTOPERATIVE DIAGNOSIS: Term with history of previous section. OPERATIVE PROCEDURE: Repeat section ([id number]). ANESTHESIA: Spinal. ENGAGEMENT LIAISON: Debra Herndon CNM INDICATION FOR PROCEDURE: This is a 24-year-old female presenting with a term with a history of previous section, undergo a repeat section at this time. Potential risks of the procedure including bleeding, infection, injury to the mother and/or baby were reviewed, and the patient wishes to proceed. DETAILS OF PROCEDURE: The patient was placed in a supine position with a roll underneath the right hip. After spinal anesthetic had been placed, a Connell catheter was inserted and the abdomen prepped and draped. The previous Pfannenstiel incision was then reused, carried down through the skin, subcutaneous tissue, and the anterior rectus sheath. Subrectus sheath flaps were then raised superiorly and inferiorly and the midline of peritoneum divided. There were some adhesions between the uterus and the anterior abdominal wall and omentum which were then taken down. Once these were taken down, the peritoneal reflection of the bladder on the uterus was divided and the bladder reflected downward. A transverse uterine incision was made and a viable male was delivered through a vertex presentation. Cord was cut and clamped and routine care given off the field per Debra Herndon CNM. The baby was initially somewhat slow to breath, but appeared to improve thereafter. The score of 1 and 5 minutes were 7 and 9 respectively. The patient was given IV and intrauterine oxytocin and IV cefoxitin. Good uterine contractions were noted and the placenta and membranes were delivered. The uterus was then closed with 2 layers of 2-0 Vicryl stitch as was the peritoneal reflection of the bladder on the uterus. The midline musculature and anterior fascia both were closed with #2 Vicryl stitch. The wound was then irrigated with a cefoxitin-containing saline solution. The subcutaneous tissue was approximated with some 3-0 Vicryl stitch and the skin with a 4-0 Vicryl subcuticular stitch followed by surgical glue and the procedure concluded. The patient was taken to the recovery room in satisfactory condition. Debra Herndon CNM served as ssn/ssbn assistant navigator as indicated per ACOG guidelines. Ky Mcgovern MD /[id number]
== END 2020-07-27 11:15 | disposition home or self-care (01) | DRG 788 ==
LOC: JP.SDS 05:29 → JP.MS 08:40
PROVIDERS: ADMIT Nurse Practitioner Family; ATTEND Surgery
PROC: 10D00Z1 Extraction of Products of Conception, Low, Open Approach (ICD-10-PCS; principal; 2020-07-26)
DX: O34.211 Maternal care for low transverse scar from previous cesarean delivery (principal); O99.824 Streptococcus B carrier state complicating childbirth; O99.344 Other mental disorders complicating childbirth; F41.9 Anxiety disorder, unspecified; Z37.0 Single live birth; Z3A.39 39 weeks gestation of pregnancy
CPT/HCPCS: 36415; 80305-QW; 85025; 85027; 86850; 86900; 86901; A9270-GY; J0694; J2370; J2405; J2590; J3010; J3410; J7040; J7050; J7120; J7121

== ENCOUNTER 2022-10-16 06:22 | Emergency (ER) | payer MEDICAID ==
[2022-10-16 07:20] LABS: ESTIMATED GFR 122 mL/min (>60)
[2022-10-16] MEDS ORDERED: Magnesium Sulfate/Water 2 GM in Premix Bag 1 BAG IV ONE (07:20)
[2022-10-16] MEDS ORDERED: Sodium Chloride 0.9% 10 ML Syringe FLUSH PRN (07:20)
[2022-10-16] MEDS ORDERED: Magnesium Sulfate/Water 40 GM/1,000 ML BAG IV SCH ×2 (07:30→08:15)
[2022-10-16 07:34] LABS: CORONAVIRUS COVID-19 NAA NEGATIVE (NEGATIVE)
[2022-10-16] MEDS: Magnesium Sulfate/Water 2 GM in Premix Bag 1 BAG IV SCH ×3 (07:40→08:06)
[2022-10-16] MEDS ORDERED: Magnesium Sulfate/Water 6 GM in Premix Bag 1 BAG IV SCH (07:45)
[2022-10-16] MEDS ORDERED: NIFEdipine 10 MG Cap PO ONE (08:53)
[2022-10-16 11:56] VITALS: BP 140/89; PULSE 86
== END 2022-10-16 11:56 ==
LOC: JP.ED 06:22
DX: O10.93 Unspecified pre-existing hypertension complicating the puerperium (principal); O99.215 Obesity complicating the puerperium; Z20.822 Contact with and (suspected) exposure to COVID-19
CPT/HCPCS: 0241U; 36415; 71046; 80053; 81001; 83880; 84484; 85025; 86140; 96365; 96366; 96376; 99285; A9270; J3475; J3490